=== PATIENT | female | born 1950 | race Caucasian/White ===

== ENCOUNTER 2017-01-23 11:46 | Emergency (ER) | payer MEDICARE, OTHER ==
[~2017-01-23] VITALS: Ht 152.4 cm; Wt 64.9 kg
[~2017-01-23 11:46] MED LIST: CEPHALEXIN500 MG PO; CYCLOBENZAPRINE10 MG PO; HYDROCODON-ACE1 EA10 PO; NAPROSYN500 MG PO; NORCO 5-325 TA1 EACH PO; PANTOPRAZOLE SO40 MG PO; VICODIN 5-3001 EACH PO
[2017-01-23] MEDS ORDERED: ONDANSETRON ODT8 MG PO (14:03)
[2017-01-23] MEDS ORDERED: NORCO 5-325 TA1 EACH PO (14:03)
== END 2017-01-23 14:12 | disposition home or self-care (01) ==
LOC: ED 11:46
DX: S39.012A Strain of muscle, fascia and tendon of lower back, initial encounter (principal); F17.200 Nicotine dependence, unspecified, uncomplicated; Z90.710 Acquired absence of both cervix and uterus; Z88.5 Allergy status to narcotic agent; Z79.899 Other long term (current) drug therapy; X58.XXXA Exposure to other specified factors, initial encounter
CPT/HCPCS: 72100; 96374; 99283; J1885

== ENCOUNTER 2018-10-25 11:31 | Emergency (ER) | payer MEDICARE, OTHER ==
[~2018-10-25] VITALS: Ht 152.4 cm; Wt 64.9 kg
[~2018-10-25 11:31] MED LIST changes: +ONDANSETRON ODT8 MG PO
[2018-10-25] MEDS ORDERED: OXYCODONE HCL5 MG PO (13:57)
[2018-10-25] MEDS ORDERED: ZOFRAN4 MG PO (13:57)
== END 2018-10-25 14:07 | disposition home or self-care (01) ==
LOC: ED 11:31
PROC: 0HQ0XZZ Repair Scalp Skin, External Approach (ICD-10-PCS; principal; 2018-10-25)
DX: S01.01XA Laceration without foreign body of scalp, initial encounter (principal); S09.90XA Unspecified injury of head, initial encounter; F17.200 Nicotine dependence, unspecified, uncomplicated; Z90.710 Acquired absence of both cervix and uterus; Z88.5 Allergy status to narcotic agent; Z79.899 Other long term (current) drug therapy; W22.8XXA Striking against or struck by other objects, initial encounter
CPT/HCPCS: 12002; 90471; 90715; 99282-25; 99406

== ENCOUNTER 2020-10-13 16:24 | Emergency (ER) | payer MEDICARE, OTHER ==
[~2020-10-13] VITALS: Ht 152.4 cm; Wt 64.9 kg
--- NOTE | ~2020-10-13 | EKG ---
[facility] [address] [facility], [place] [address] Draft EK completed, results pending confirmation PATIENT NAME: SINGH AZEVEDO Electrocardiogram DATE OF : 50 PHYSICIAN: PRELIMINARY REPORT #: [id number] REPORT IS CONFIDENTIAL AND NOT TO BE RELEASED WITHOUT AUTHORIZATION
[~2020-10-13 16:24] MED LIST changes: +OXYCODONE HCL5 MG PO; +ZOFRAN4 MG PO
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
--- NOTE | 2020-10-13 16:47 | NUR ---
EKG completed at 1637 and given to RN for to review.
--- NOTE | 2020-10-15 18:31 | EKG ---
[facility] [address] [facility] [place], [place] [address] Signed Normal sinus rhythm Nonspecific ST and T wave abnormality Prolonged QT Abnormal ECG When compared with ECG of 13-OCT-2020 16:37, (Unconfirmed) No significant change was found Confirmed by TANISHA ADAM MD ([id number]) on 10/15/2020 6:30:47 PM Electronically Signed By: TANISHA ADAM MD 10/15/201830 PATIENT NAME: SINGH AZEVEDO Electrocardiogram DATE OF : 50 PHYSICIAN: TANISHA ADAM MD REPORT #: [id number] REPORT IS CONFIDENTIAL AND NOT TO BE RELEASED WITHOUT AUTHORIZATION
== END 2020-10-13 18:31 | disposition home or self-care (01) ==
LOC: ED 16:24
DX: R07.89 Other chest pain (principal); E87.6 Hypokalemia; F17.200 Nicotine dependence, unspecified, uncomplicated; Z88.5 Allergy status to narcotic agent; Z79.899 Other long term (current) drug therapy
CPT/HCPCS: 71045; 80053; 83735; 84484; 85025; 93005; 93010; 99285-25

== ENCOUNTER 2021-07-23 10:10 | Day surgery (SDC) | payer MEDICARE, OTHER ==
[~2021-07-23] VITALS: Ht 152.4 cm; Wt 53.5 kg
[~2021-07-23 10:10] MED LIST changes: +BAYER CHEWABLE81 MG PO; +COMBIVENT RESPIM4 GM INH; +MINIPRESS1 MG PO; +SERTRALINE HCL25 MG PO; +VITRON-C TABLE1 EACH PO; +[UNRECOGNIZED DRUG - OTHER] PO
--- NOTE | 2021-07-23 14:34 | NUR ---
07/23/21 1434 Irma Thompson 1428- PT ARRIVES TO PACU NONAROUSABLE TO STIMULI. RESP EVEN AND TACHYPNEIC AT 21-24 BPM. OXYGEN SAT HIGH 90'S TO 100% ON 4L VIA CO2 NC.
--- NOTE | 2021-07-24 07:11 | OR ---
[facility] [address] [place], [place] [address] Signed DATE OF OPERATION: 07/23/2021 SURGEON: Nigel Smyth MD PREOPERATIVE DIAGNOSES: 1. Loss of taste and anorexia with weight loss. 2. Iron-deficiency anemia. 3. Prior history of hiatal hernia with acid reflux. 4. Hartman's esophagus plus or minus dysplasia. 5. Crystal-Za fundoplication in 2018. 6. Diverticulosis. POSTOPERATIVE DIAGNOSES: 1. Intact Crystal-Za fundoplication. 2. Bnpi-oy-lkvposla duodenitis/bulb. 3. Question short-segment Hartman's esophagus. 4. Tortuous colon with 3 areas of significant angulation. PROCEDURES: 1. EGD with CLOtest and biopsies of the pyloric bulb, antrum, and GE junction. 2. Colonoscopy without biopsy. ESTIMATED BLOOD LOSS: None. INDICATIONS: Ann is a 71-year-old female, asked to see me for upper and lower endoscopy mainly for her iron-deficiency anemia. Although, she had a loss of taste and some anorexia with weight loss. She told me that she had COVID previously. That gave her no taste. Her iron-deficiency anemia apparently has been longstanding. She had a previous history of a hiatal hernia with acid reflux. There was a question whether or not she had a short-segment Hartman's esophagus with possible dysplasia. Her CLOtest have been negative in the past. She is known to have a little diverticulosis. There is no family history of colon cancer or polyps. She had a laparoscopic Crystal-Za fundoplication in 2018, with Dr. White. Currently, she does not describe any upper or lower GI complaints. There is no esophageal dysphagia. She had been referred to my office by her primary care provider. Her friend came with her. In the office, I gave her a pamphlet on both upper and lower endoscopy. She recalls that as well. There is risk including, but not limited to gas bloating, crampy abdominal pain, bleeding, perforation requiring surgery, and missed diagnosis. Also because of her advanced age, medical Electronically Signed By: NIGEL SMYTH MD 07/24/21 0711 PATIENT NAME: ANN AZEVEDO OPERATIVE REPORT DATE OF : 50 REPORT #: [id number] PHYSICIAN: NIGEL SMYTH MD PCP: KAREN GARNETT MD REPORT IS CONFIDENTIAL AND NOT TO BE RELEASED WITHOUT AUTHORIZATION [facility] [address] [place], [place] [address] Signed issues, and very frail nature, we asked that an anesthesia provider help with increased monitoring sedation with propofol. She had expressed understanding, wished to proceed. PROCEDURE NOTE: Ann was taken in the endoscopy suite and placed in a supine semi-recumbent position. She was given monitored anesthesia care with propofol per our nurse customer operations manager. A bite block was utilized for the case. The adult gastroscope was introduced and advanced out into the duodenum without difficulty. The duodenum was unremarkable. Her pyloric bulb showed moderate inflammatory changes. There was no ulcers. We took a biopsy of the pyloric bulb as well as the antrum for pathologic review. We took an additional biopsy out of her antrum for CLOtest. Overall, the stomach was not particularly concerning. On retroflexion of the scope, we can see the Crystal-Za fundoplication. It remains intact. It remains below the diaphragm. The scope was withdrawn up through the GE junction, which is compliant without stricture. She has some mild disruption to the Z-line. She may have a very short-segment of Hartman's esophagus. We went and took several biopsies along this area for pathologic review. There was no distal esophagitis. The middle and upper esophagus were unremarkable. After this, the gas was suctioned out and the gastroscope removed. Ann tolerated the upper endoscopy quite well. Ann was then rotated into the left lateral decubitus position. She was maintained on monitored anesthesia care per nurse customer operations manager. A digital rectal exam was performed and this was unremarkable. The adult colonoscope was introduced and advanced under direct visualization of the camera. She has a very narrow, tortuous, difficult sigmoid colon. In fact, we almost abandon the endoscopy. We used abdominal compression and rotating her several times into the supine position and back into the left lateral decubitus position in order to get the scope up through the sigmoid colon and eventually we had some trouble around the splenic flexure and certainly moderate difficulty at the hepatic flexure. Eventually, we made our way into the cecum itself. We could easily see the appendiceal orifice and the ileocecal valve. Her prep was quite good. The scope was then slowly withdrawn. On this occasion, we saw no diverticulosis and no polyps. The scope had been retroflexed in the rectum and no additional pathology noted above the anal canal. After this, the gas was suctioned out. The colonoscope removed. Ann tolerated the procedure quite well. RECOMMENDATIONS: I will see Ann back in my office in 7 to 14 days to review her results. Her colonoscopy is significantly difficult from a technical standpoint. She might keep this in mind in the future and pursue other modes of evaluation. Electronically Signed By: NIGEL SMYTH MD 07/24/21 0711 PATIENT NAME: ANN AZEVEDO OPERATIVE REPORT DATE OF : 50 REPORT #: [id number] PHYSICIAN: NIGEL SMYTH MD PCP: KAREN GARNETT MD REPORT IS CONFIDENTIAL AND NOT TO BE RELEASED WITHOUT AUTHORIZATION [address] [place], [place] [address] Signed Nigel Smyth MD ALB/MODL /[id number] cc: MD David Jane MD Copies: KAREN GARNETT MD, STEVEN BOWER, ANDREW L MD ~ Electronically Signed By: NIGEL SMYTH MD 07/24/21 0711 PATIENT NAME: ANN AZEVEDO OPERATIVE REPORT DATE OF : 50 REPORT #: [id number] PHYSICIAN: NIGEL SMYTH MD PCP: KAREN GARNETT MD REPORT IS CONFIDENTIAL AND NOT TO BE RELEASED WITHOUT AUTHORIZATION
== END 2021-07-23 15:03 | disposition home or self-care (01) ==
LOC: DS 10:10 → OPS 10:10 → DS 10:45 → OPS 10:45
PROVIDERS: ATTEND Colon & Rectal Surgery
PROC: 0DB68ZX Excision of Stomach, Via Natural or Artificial Opening Endoscopic, Diagnostic (ICD-10-PCS; 2021-07-23)
PROC: 0DJD8ZZ Inspection of Lower Intestinal Tract, Via Natural or Artificial Opening Endoscopic (ICD-10-PCS; 2021-07-23)
PROC: 0DB38ZX Excision of Lower Esophagus, Via Natural or Artificial Opening Endoscopic, Diagnostic (ICD-10-PCS; principal; 2021-07-23 10:45)
PROC: 0DB78ZX Excision of Stomach, Pylorus, Via Natural or Artificial Opening Endoscopic, Diagnostic (ICD-10-PCS; 2021-07-23 10:45)
DX: D50.9 Iron deficiency anemia, unspecified (principal); R63.4 Abnormal weight loss; R63.0 Anorexia; K29.50 Unspecified chronic gastritis without bleeding; K20.90 Esophagitis, unspecified without bleeding; K63.89 Other specified diseases of intestine; F17.210 Nicotine dependence, cigarettes, uncomplicated; Z98.890 Other specified postprocedural states; Z88.5 Allergy status to narcotic agent
CPT/HCPCS: 00731; 36415; 87077; J0690; J2370; J2704; J7121

== ENCOUNTER 2022-08-03 05:45 | Day surgery (SDC) | payer MEDICARE, OTHER ==
[2022-08-01 09:12] VITALS: BP 125/68
[~2022-08-03] VITALS: Ht 152.4 cm; Wt 59.5 kg
[~2022-08-03 05:45] MED LIST changes: +IRON325 M1 PO; +PRAZOSIN HCL1 MG PO
[2022-08-03 06:08] VITALS: BP 122/56
--- NOTE | 2022-08-03 08:10 | NUR ---
PT ALERT, ORIENTED AND RESTING COMFORTABLY. PT MENTIONED SHE HAS HAS PREVIOUS EGD. ALL QUESTIONS ASKED ANSWERED. PT DID REQUEST PRAYER, WILL FOLLOW
--- NOTE | 2022-08-03 08:14 | NUR ---
08/03/22 0814 Maida Louise 0807-PATIENT ARRIVED TO PACU ON RA RR EVEN. PATIENTS HOB ELEVATED REACTIVE TO VERBAL STIMULI OPENS EYES. VERY DROWSY DOZES BACK TO SLEEP. IVF INFUSING. SR. 0814-PATIENT REACTIVE TO VERBAL STIMULI OPENING EYES ORIENTED TO PACU DENIES PAIN OR NAUSEA. RA 97% RR EVEN. DOZES BACK TO SLEEP.
[2022-08-03 08:34] VITALS: BP 122/80
--- NOTE | 2022-08-03 09:47 | OR ---
[facility] [address] [place], [place] [address] Signed DATE OF OPERATION: 08/03/2022 SURGEON: Nigel Smyth MD PREOPERATIVE DIAGNOSES: 1. Chronic iron deficiency anemia. 2. Epigastric abdominal pain. 3. History of gastroduodenitis. 4. Status post Crystal-Za fundoplication in 2018. 5. History of short-segment Hartman's esophagus. 6. Diverticulosis. 7. Torturous colon. POSTOPERATIVE DIAGNOSES: 1. Mild to moderate gastroduodenitis. 2. Intact Crystal-Za fundoplication. 3. GE junction at 35 cm with mild irritation. PROCEDURE: EGD with CLOtest and biopsies of the pyloric bulb, antrum and GE junction. ESTIMATED BLOOD LOSS: None. INDICATIONS: Ann is a 72-year-old female, who is now disabled, mainly from smoking and lack of physical activity. She is very frail at this point in her life. She has been asked to see me for her 3rd upper and lower endoscopy in one year. She has had chronic iron deficiency anemia for many many years. She has a long history of medical noncompliance and in particular, she does not like the iron tablets. She has been seeing her medical oncologist for IV iron infusion. Despite that, her anemia seems to be getting worse. Her preop hemoglobin was 10.1 with a mean cell volume of 80.7. She has received blood transfusions this last year for her anemia. She has also been following along with her text transcriber for her aortic valve replacement. So far, the followup echocardiograms have been good. Unfortunately, she continues to smoke and has expressed to myself and other physicians no desire to quit. In the office, I had reviewed her extensive records together. We had talked about her frail nature and her very tortuous, very difficult colon endoscopically. Consequently, we recommended that she have a barium enema. Naturally, she has not followed through with that at this point. We then decided we would proceed with yet her 3rd upper endoscopy in one year. She is very familiar with Electronically Signed By: NIGEL SMYTH MD 08/03/22 0947 PATIENT NAME: ANN AZEVEDO OPERATIVE REPORT DATE OF : 50 REPORT #: [id number] PHYSICIAN: NIGEL SMYTH MD PCP: KAREN GARNETT MD REPORT IS CONFIDENTIAL AND NOT TO BE RELEASED WITHOUT AUTHORIZATION [facility] [address] [place], [place] [address] Signed upper endoscopy. She knows there is risk including, but not limited to gas bloating, crampy abdominal pain, bleeding, perforation requiring surgery, and missed diagnosis. We also reviewed the need for monitored anesthesia care given her advanced age, very frail nature, COPD, and other issues including the aortic valve. She had expressed understanding and wished to proceed. PROCEDURE NOTE: Ann was taken into our endoscopy suite and placed in the supine semi-recumbent position. She was given monitored anesthesia care propofol per our nurse promotions producer. The posterior oropharynx was anesthetized with Hurricaine spray. A bite block was utilized for the case. The adult gastroscope was introduced and advanced under direct visualization of the camera out into the third portion of the duodenum without difficulty. The duodenum was unremarkable as usual. Her pyloric bulb showed moderate patchy inflammatory changes as did her stomach. This is chronic and quite consistent over the years. Once again, no ulcerations in the pyloric bulb or the stomach. No active bleeding that we could see. We took a biopsy of the pyloric bulb as well as the antrum for pathologic review. We also took a biopsy of the antrum for CLOtest. Upon retroflexion of the scope, we can see that she has an intact Crystal-Za fundoplication. The scope was withdrawn up through the area of the GE junction, which was compliant without stricture. There was no gastric or esophageal varices. She has very minimal disruption around her Z-line. We went ahead and took a biopsy along the edge of the Z-line at 35 cm from her incisors. There was no distal esophagitis. The middle and upper esophagus were quite unremarkable. After this, the gas was suctioned out and the gastroscope removed. Ann tolerated her procedure quite well. RECOMMENDATIONS: I will see Ann back in my office in 7 to 14 days to review her results. Once again, we will encourage her to undergo a barium enema to evaluate her colon. She might also consider a simple small bowel follow-through just to evaluate the length of her small bowel as well. If she continues to have bleeding issues, she might need capsule endoscopy. Nigel Smyth MD ALB/AVELINOL /[id number] Electronically Signed By: NIGEL SMYTH MD 08/03/22 0947 PATIENT NAME: ANN AZEVEDO OPERATIVE REPORT DATE OF : 50 REPORT #: [id number] PHYSICIAN: NIGEL SMYTH MD PCP: KAREN GARNETT MD REPORT IS CONFIDENTIAL AND NOT TO BE RELEASED WITHOUT AUTHORIZATION [place] [id number] [place] [address] Signed cc: MD Nigel Jane, MD Layo Pelaez, MD David Escamilla Copies: KAREN GARNETT MD, ANDREW L MD QUACKENBUSH,DAVID CHOU MD Electronically Signed By: NIGEL SMYTH MD 08/03/22 0947 PATIENT NAME: ANN AZEVEDO OPERATIVE REPORT DATE OF : 50 REPORT #: [id number] PHYSICIAN: NIGEL SMYTH MD PCP: KAREN GARNETT MD REPORT IS CONFIDENTIAL AND NOT TO BE RELEASED WITHOUT AUTHORIZATION
--- NOTE | 2022-08-04 15:29 | PATH ---
[facility] [address] [place], [place] [address] Signed SPECIMEN(S): A DUODENAL BULB BIOPSY SPECIMEN(S): B ANTRUM BIOPSY SPECIMEN(S): C GE JUNCTION BIOPSY SPECIMEN SOURCE: A. DUODENAL BULB BIOPSY B. ANTRUM BIOPSY C. GE JUNCTION BIOPSY CLINICAL HISTORY: History of anemia, chronic gastritis, Hartman's esophagus. History of Za fundoplication. Post: Gastroduodenitis. FINAL PATHOLOGIC DIAGNOSIS: A. Duodenal bulb biopsy: - Benign duodenal mucosa with focal reactive features and mild chronic stromal inflammation. - Negative for significant villous effacement or increased epithelial lymphocytes. B. Antrum biopsy: - Mild chronic gastritis. - Negative for atypical epithelial features. - A Helicobacter pylori immunostain is negative for organisms. C. GE junction, biopsy: - Esophageal and glandular mucosa with specialized intestinal (goblet cell) metaplasia, negative for dysplasia. JVR:sm:C2NR MICROSCOPIC EXAMINATION: Histologic sections of all submitted blocks are examined by light microscopy. These findings, together with the gross examination, support the pathologic diagnosis. A Helicobacter pylori immunostain is performed with appropriate positive and negative controls on block (B1) and is negative for organisms. JVR:sm GROSS DESCRIPTION: A. The specimen, labeled and designated "Portenier, duodenal bulb biopsy," is received in formalin and consists of two stark soft tissue fragments, ranging from 0.1-0.3 cm. Entirely submitted in (A1). B. The specimen, labeled and designated "Portenier, antrum biopsy," is received PATIENT NAME: SINGH AZEVEDO PATHOLOGY DATE OF : 50 REPORT #: [id number] PHYSICIAN: DHAVAL ORELLANA PCP: KAREN GARNETT MD REPORT IS CONFIDENTIAL AND NOT TO BE RELEASED WITHOUT AUTHORIZATION [facility] [address] [place], [place] [address] Signed in formalin and consists of one stark soft tissue fragment, 0.4 cm. Entirely submitted in (B1). C. The specimen, labeled and designated "Portenier, GE junction biopsy," is received in formalin and consists of one stark soft tissue fragment, 0.3 cm. Entirely submitted in (C1). VB (under the direct supervision of a pathologist) The Gross Description was prepared using a voice recognition system. The report was reviewed for accuracy; however, sound-alike word errors, addition and/or deletions may occur. If there is any question about this report, please contact Client Services. ADDITIONAL NOTES: Immunohistochemical and/or in situ hybridization studies were performed on this case with the appropriate positive controls that react as expected. This test was developed and its performance characteristics determined by [facility]. It has not been cleared or approved by the U.S. Food and Drug Administration. The FDA has determined that such clearance or approval is not necessary. This test is used for clinical purposes. It should not be regarded as investigational or for research. [facility] is certified under the Clinical Laboratory Improvement Amendments of 1988 (CLIA) as qualified to perform high complexity clinical laboratory testing. This assay has not been validated for specimens that have been decalcified. PERFORMING LABORATORY: The technical component was performed by [facility], [address] [place] [id number] (CLIA# [id number]). Professional interpretation was performed by [facility], [address] [place] [address] Ave[address] [place] [address] (CLIA#: [id number]). Diagnostician: Jono Baron MD Pathologist Electronically Signed 08/04/2022 Copies: ~ PATIENT NAME: JALENGEOVANNASINGH PATHOLOGY DATE OF : 50 REPORT #: [id number] PHYSICIAN: DHAVAL PATHOLOGY PCP: KAREN GARNETT MD REPORT IS CONFIDENTIAL AND NOT TO BE RELEASED WITHOUT AUTHORIZATION
== END 2022-08-03 08:45 | disposition home or self-care (01) ==
LOC: OPS 05:45 → DS 05:45 → OPS 08:15 → DS 08:15 → OPS 08:45 → DS 12:00
PROVIDERS: ATTEND Colon & Rectal Surgery
PROC: 0DB68ZX Excision of Stomach, Via Natural or Artificial Opening Endoscopic, Diagnostic (ICD-10-PCS; principal; 2022-08-03 07:30)
DX: D50.9 Iron deficiency anemia, unspecified (principal); K29.90 Gastroduodenitis, unspecified, without bleeding; K29.50 Unspecified chronic gastritis without bleeding; K22.70 Barrett's esophagus without dysplasia; K57.90 Diverticulosis of intestine, part unspecified, without perforation or abscess without bleeding; K63.89 Other specified diseases of intestine; J44.9 Chronic obstructive pulmonary disease, unspecified; F17.200 Nicotine dependence, unspecified, uncomplicated; I10 Essential (primary) hypertension; I25.10 Atherosclerotic heart disease of native coronary artery without angina pectoris; I35.0 Nonrheumatic aortic (valve) stenosis; R01.1 Cardiac murmur, unspecified; Z98.890 Other specified postprocedural states
CPT/HCPCS: 00731; 36415; 87077; J0330; J0690; J2704; J3010; J7121

== ENCOUNTER 2023-02-15 11:30 | Observation (INO) | payer MEDICARE, OTHER ==
[~2023-02-15] VITALS: Ht 152.4 cm; Wt 58.3 kg
[~2023-02-15 11:30] MED LIST changes: -BAYER CHEWABLE81 MG PO; +LO-DOSE ASPIRIN81 MG PO
[2023-02-15 12:02] LABS: BASOPHILS 0.9 % (0-2); EOSINOPHILS 0.9 % (0-6); HEMATOCRIT 21.3 % (35.0-50.0); HEMOGLOBIN 6.5 g/dL (12.0-18.0); MCH 20.8 (27-36); MCHC 30.4 g/dl (30-36); MONOCYTES 7.3 % (0-12); NEUTROPHILS 59.9 % (39-80); PLATELET COUNT 344 K/uL (140-440); RBC 3.11 M/ul (4.3-5.7); RDW 18.1 (10.5-15.0)
[2023-02-15 12:25] LABS: ALBUMIN 3.7 g/dL (3.4-5.0); ALBUMIN/GLOBULIN RATIO 1.12 (1.1-2.4); ANION GAP 16.7 (7-21); BILIRUBIN, TOTAL 0.2 ng/dL (0.2-1.0); BUN/CREATININE RATIO 14.14 (6.0-28.6); CALCIUM 8.5 mg/dL (8.5-10.1); CREATININE, SERUM 0.99 mg/dL (0.55-1.02); POTASSIUM 3.7 mmol/L (3.5-5.1)
[2023-02-15 12:50] LABS: INFLUENZA B NAA NEGATIVE (NEGATIVE); RESPIRATORY SYNCYTIAL VIR NAA NEGATIVE (NEGATIVE)
[2023-02-15 14:36] LABS: ABO A; ANTIBODY SCREEN NEGATIVE; RH POSITIVE
--- NOTE | 2023-02-15 15:40 | NUR ---
PT ARRIVED TO ROOM VIA ED STRETCHER ACCOMPANIED BY RN EAN Brar. REPORT RECEIVED FROM EAN Brar. PT TRANSFERRED FROM STRETCHER TO BED VIA SCOOT METHOD, UNASSISTED, STATING THAT SHE DOESN'T FEEL DIZZY ANYMORE. PT WAS ABLE TO STAND UNASSISTED WITH 2-PERSON STANDBY, AMUBLATE TO TOILET, VOID, STAND AND AMBULATE TO SINK TO WASH HER HANDS, AMBULATE BACK TO AND GET INTO BED WITHOUT COMPLAINTS OF PAIN, DIZZINESS, OR LIGHTHEADEDNESS. PT IS A&O X4, STATES SHE IS HUNGRY, IV 20G IN LFA FLUSHES WELL WITH GOOD RETURN. BLOOD CONSENT SIGNED. BLOOD BAND ON PT, PT VERIFIED NAME AND . PT ORIENTED TO ROOM, SIDE RAILS UP FOR SAFETY, CALL LIGHT IN REACH, PERSONAL BELONGINGS AND BEDSIDE TABLE IN REACH. WARM BLANKETS PROVIDED.
[2023-02-15 15:47] LABS: IS CROSSMATCH COMPATIBLE
[2023-02-15 15:53] VITALS: BP 123/42
--- NOTE | 2023-02-15 16:38 | NUR ---
BLOOD PRODUCTS BROUGHT TO ROOM BY WILLEM EDDY. PT VERIFICATION, BLOOD PRODUCT VERIFICATION PERFORMED BY THIS RN AND WILLEM EDDY, PT CONFIRMED PT INFORMATION. WILLEM CUADRA OBSERVING. PRE VS OBTAINED. PT IS SUPINE IN BED, WATCHING TELEVISION CALL LIGHT IN REACH. EDUCATED PT ON WHEN TO USE CALL LIGHT IF EXPERIENCING S/SX OF ADVERSE EFFECTS.
--- NOTE | 2023-02-15 16:52 | NUR ---
PT HAS NO COMPLAINTS AT THIS TIME. RESTING IN BED, EYES CLOSED, BREATHING REGULAR AND NON-LABORED, VSS, BLOOD ADMINISTRATION RATE INCREASED FROM 125/HR TO 175/HR. PT TOLERATING WELL. PT HAS TELEVISION ON. CALL LIGHT, BEDSIDE TABLE IN REACH, SAFETY RAILS UP.
--- NOTE | 2023-02-15 18:01 | NUR ---
PT ARRIVED TO HER ROOM VIA STRETCHER AROUND 1540 HOURS THIS SHIFT. PT HAS BEEN A&O X4, C/O BEING HUNGRY. PT WAS ABLE TO AMBULATE TO THE TOILET WITH SBA ONLY, NO C/O DIZZINESS AT THAT TIME. PT'S SYSTOLIC BP HAS BEEN BETWEEN 100-123, NO FEVERS. PRBC BEING ADMINISTERED, NO ADVSERSE EFFECTS THUS FAR, VSS. PT FAMILY WAS IN ROOM UPON HER ARRIVAL BUT HAS SINCE LEFT. PT HAS NOT USED THE CALL LIGHT SINCE HER ARRIVAL. PRE VS AND 15 MIN VS HAVE BEEN COMPLETED.
--- NOTE | 2023-02-15 18:03 | NUR ---
PATIENT IN BED RESTING WITH EYES CLOSED. IN TO DO I&O'S, I&O'S CHARTED. RN DOING VITALS WHILE DOING BLOOD ADMINISTRATION. CALL LIGHT IN REACH. NO FURTHER NEEDS AT THIS TIME.
--- NOTE | 2023-02-15 18:57 | NUR ---
In with pt for first unit of PRBC completion. VS obtained, second unit started. Pt is A&O x4, no complaints or concerns. IV site is patent and no swelling redness or irritation. Pt was able to ambulate to void in the toilet with line and tube management only. Pt refused to put her no-slip socks back on prior to ambulating to the toilet and education was reinforced on reducing risk for falls by donning the no-slip socks. Pt verbalized understanding. Pt voided 100ml clear yellow urine, no c/o dizziness or lightheadedness, pt states she feels good. VSS. Call ligth in reach, personal belongings and bedside table in reach. Side rails up.
--- NOTE | 2023-02-15 19:36 | NUR ---
REPORT RECEIVED FROM DAY SHIFT RN. PT LAYING IN BED WATCHING TV. BLOOD CURRENTLY INFUSING. NO SIGNS OF ACUTE DISTRESS. NO NEEDS EXPRESSED AT THIS TIME. CALL LIGHT WITHIN REACH. SAFETY PRECAUTIONS IN PLACE. WILL CONTINUE TO MONIOTR.
[2023-02-15 20:48] VITALS: BP 133/51
--- NOTE | 2023-02-16 00:02 | NUR ---
PT LAYING IN BED WATCHING TV. NO SIGNS OF ACUTE DISTRESS. NO NEEDS EXPRESSED AT THIS TIME. PT NPO FOR PROCEDURE IN AM. CALL LIGHT WITHIN REACH. SAFETY PRECAUTIONS IN PLACE. IV FLUIDS INFUSING.
[2023-02-16 02:11] VITALS: BP 135/55
--- NOTE | 2023-02-16 04:14 | NUR ---
PT RESTING COMFORTABLY IN BED WITH EYES CLOSED. BREATHING EVEN AND UNLABORED. CALL LIGHT WITHIN REACH. IV FLUIDS INFUSING. IV PATENT AND INTACT. NO NEEDS EXPRESSED AT THIS TIME. SAFETY PRECAUTIONS IN PLACE.
[2023-02-16 05:04] VITALS: BP 108/52
[2023-02-16 05:31] LABS: BASOPHILS 0.9 % (0-2); EOSINOPHILS 1.5 % (0-6); HEMATOCRIT 25.8 % (35.0-50.0); HEMOGLOBIN 8.5 g/dL (12.0-18.0); LYMPHOCYTES 29.7 % (24-44); MCH 24.4 (27-36); MCHC 32.9 g/dl (30-36); MCV 74.3 fl (81-99); MONOCYTES 7.5 % (0-12); NEUTROPHILS 60.4 % (39-80); PLATELET COUNT 204 K/uL (140-440); RBC 3.48 M/ul (4.3-5.7); RDW 22.7 (10.5-15.0)
[2023-02-16 05:39] LABS: ANION GAP 13.9 (7-21); BUN/CREATININE RATIO 15.38 (6.0-28.6); CREATININE, SERUM 0.78 mg/dL (0.55-1.02); POTASSIUM 3.9 mmol/L (3.5-5.1)
[2023-02-16 05:56] LABS: INR 1.09 (0.80-1.30); PROTIME 13.6 Sec (11.2-14.2)
--- NOTE | 2023-02-16 06:20 | NUR ---
TO PT ROOM, INFORMED PT OF THE UPCOMING EDG, PER SAGE, COMING TO FLOOR FOR PT NEAR 0700. PT UP TO BATHROOM TO VOID.
--- NOTE | 2023-02-16 07:30 | NUR ---
REPORT GIVEN TO DAY SHIFT RN. PT OFF FLOOR FOR PROCEDURE AT THIS TIME.
--- NOTE | 2023-02-16 07:51 | NUR ---
RECIEVED REPORT FROM NURSE. PT IS CURRENTLY OFF THE FLOOR GETTING AN ENOSCOPY.
--- NOTE | 2023-02-16 08:14 | NUR ---
02/16/23 0814 Ashanit Matt 0805 PT ARRIVED TO PACU ON 4L VIA NC, PT ASLEEP AND RESP EVEN AND UNLABORED. 0812 PT WOKE TO TACTILE STIMULI AND DENIES CONCERNS. PT TURNED OFF.
[2023-02-16 08:40] VITALS: BP 107/84
--- NOTE | 2023-02-16 08:40 | NUR ---
recieved report from surgical nurse. pt is a+o. no signs or complaints of pain. pt vitals are stable. see emar. no other cares needed or requested at this time. call light within reach
[2023-02-16] MEDS ORDERED: NEOMYCIN-POLYMY10 ML OTIC (08:53)
--- NOTE | 2023-02-16 08:58 | NUR ---
MED REC COMPLETE
--- NOTE | 2023-02-16 09:11 | NUR ---
PT DECLINED CLINICAL STAFF ANESTHESIOLOGIST VISIT, SAYING SHE WAS LIKELY GOING HOME SOON. GAVE THANKS FOR TIMELY RECOVERY.
--- NOTE | 2023-02-16 10:16 | NUR ---
UR NOTE: [facility] SYNCOPE: OBSERVATION CARE (ISC) MET 02/15/23
--- NOTE | 2023-02-16 10:26 | NUR ---
PATIENT ALERT AND SITTING UP IN COFFEE, WITH DRINK. STATES SHE HAS A HOME WITH 3-4 STEPS INTO FRONT AND 1 STEP INTO BACK DOORS. STATES SHE DOES NOT HAVE ISSUES NAVIGATING STAIRS. NO DME. STATES SHE HAS CONSIDERED A WALKER, BUT FEELS SHE MAY NOT NEED ONE NOW THAT SHE HAS HAD BLOOD PRODUCTS AND IS FEELING A BIT BETTER. HAS BEEN STAYING WITH HER DAUGHTER, KATIUSKA, DUE TO INCREASED WEAKNESS WITH RECENT ANEMIA. STATES SHE STILL DRIVES, BUT THINKS SHE MAY NOT DRIVE MUCH LONGER. HAS DAUGHTER AND OTHERS SHE STATES WILL ASSIST WITH TRANSPORTATION WHEN NEEDED. STATES SHE IS HAVING ISSUES LIFTING AND DOING HOUSEWORK RECENTLY, BUT STATES SHE CONTINUES TO FEEL IT IS RELATED TO ANEMIA. VOICES DESIRE TO GO HOME TODAY. HAS NO FINANCIAL ISSUES. STATES SHE IS OK WITH FOOD AND OBTAINING MEDICATIONS, GETS SOCIAL SECURITY AND IT IS ENOUGH FOR HER. DENIES ANY POTENTIAL NEEDS FOR DC AT THIS TIME. INFORMED TO NOTIFY STAFF IF SOMETHING SHOULD ARISE. DEMOGRAPHICS VERIFIED WITH PATIENT AT THIS TIME.
[2023-02-16] MEDS ORDERED: SUCRALFATE1 GM PO (11:29)
[2023-02-16] MEDS ORDERED: PANTOPRAZOLE SO40 MG PO (11:29)
[2023-02-16 11:42] VITALS: BP 127/49
--- NOTE | 2023-02-16 12:25 | NUR ---
PT IS CURRENTLY GETTING DRESSED GETTING READY FOR DISCHARGE.
--- NOTE | 2023-02-16 13:00 | NUR ---
pt was given discharge instructions. IV CATHETER TAKEN OUT. IN TACT NO REDNESS OR SWELLING. VITALS TAKEN. PT CALLED HER RIDE AND IS NOW FINISHING DRESSING TO LEAVE.
--- NOTE | 2023-02-16 17:56 | EKG ---
[facility] [address] [facility] [place], [place] [address] Signed Normal sinus rhythm Normal ECG When compared with ECG of 14-DEC-2021 11:53, No significant change was found Confirmed by QUINN CHANDRA MD ([id number]) on 02/16/2023 5:55:58 PM Electronically Signed By: QUINN CHANDRA 02/16/23 1756 PATIENT NAME: SINGH AZEVEDO REBEKAH Electrocardiogram DATE OF : 50 PHYSICIAN: QUINN CHANDRA REPORT #: [id number] REPORT IS CONFIDENTIAL AND NOT TO BE RELEASED WITHOUT AUTHORIZATION
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
--- NOTE | 2023-02-17 10:16 | OR ---
[facility] [address] [place], [place] [address] Signed DATE OF OPERATION: 02/16/2023 SURGEON: Laquita Merritt MD PREOPERATIVE DIAGNOSES: 1. Significant anemia, hematocrit 21 with melena. 2. Known history of Za fundoplication. 3. Relatively recent history of duodenitis. 4. Ongoing smoking. POSTOPERATIVE DIAGNOSES: 1. Proximal gastric erosions, likely accounting for bleeding. 2. Significant bulbar duodenitis. PROCEDURE: Esophagogastroduodenoscopy with control of bleeding with hemoclip application. ANESTHESIA: Intravenous sedation; propofol infusion, Zev Alvarado CRNA INDICATIONS: This 73-year-old white woman is admitted to the hospital on 02/15/[address] Irwin, hospitalist, for hematocrit of 21 and report of melena. She presented at home with lightheadedness and weakness. She has undergone 2 units of transfusion and feels markedly improved. She has a history of Za fundoplication elsewhere and a colonoscopy and upper endoscopy performed by Dr. Josué Moreau in the past that had shown duodenitis and subsequent evaluation elsewhere for colonoscopy showed presumed arteriovenous malformations. Additionally, she had polyps. Her current situation is such that she continues to smoke on a daily basis. She has had black stool, but no hematemesis. She additionally has had an aortic valve replacement percutaneously and is not chronically anticoagulated. Duodenitis was noted on upper endoscopy in 2021 as well as in July of this year as performed by Dr. Josué Moreau. A colonoscopy by Dr. Farooq in [place] October 02, 2022 was thought to show AVMs, though I do not have specific information further. She is admitted at this time to undergo upper endoscopy to better characterize the source of her anemia. She understands the risk of bleeding, infection, perforation, and so on. Electronically Signed By: LAQUITA MERRITT MD 02/17/23 1016 PATIENT NAME: SINGH AZEVEDO OPERATIVE REPORT DATE OF : 50 REPORT #: [id number] PHYSICIAN: LAQUITA MERRITT MD PCP: KAREN HANNAH MD REPORT IS CONFIDENTIAL AND NOT TO BE RELEASED WITHOUT AUTHORIZATION [facility] [address] [place], [place] [address] Signed FINDINGS: The patient tolerated the procedure well. Propofol sedation was used. She had no sign of clot within the stomach or duodenum. She did have significant bulbar duodenitis but the 2nd and 3rd portions were normal. Retroflexed view confirmed anatomy consistent with Za fundoplication, but she did have at least three gastric erosions, which were significant and did show some fresh oozing of blood. The dominant lesion was hemoclipped for control. CLOtest was negative. Her esophagus appeared normal. There was no evidence of Hartman's epithelium proper. Vocal cords were normal. There was no sign of vallecular varices. DESCRIPTION OF PROCEDURE: The patient was brought to the endoscopy suite and given topical lidocaine hypopharyngeal anesthesia. She was given intravenous sedation with propofol infusional technique by the water safety teacher in the lateral decubitus position left side down. A bite block was placed. An Olympus video upper endoscope was passed in the hypopharynx. The vocal cords appeared normal. The scope was passed in the esophagus without problem, throughout its length it was normal. There was no evidence of Hartman's epithelium, varices, ulceration, or other abnormality. The scope was easily passed in the stomach, which was insufflated with air. Rugal folds appeared normal. The antrum was promptly evaluated and had mild inflammation but not too much. The scope was advanced to the duodenum, which showed significant inflammation but no actual ulceration. Scope was passed to the 2nd and 3rd portions which allowed for biopsy to assess for celiac disease and withdrawal to the bulbar portion, biopsied as well. Careful inspection confirmed no actual ulceration. The scope was withdrawn and biopsies were taken of the antrum for both ANA and pathologic testing. CLOtest ultimately proved to be negative. Retroflexed view was then undertaken and examination of proximal GE junction showed anatomy typical of a Za fundoplication. Careful withdrawal showed erosive changes in the wrap area with some oozing of blood, though not pulsatile blood by any means. Various manipulations confirmed about three such erosions. The largest and most problematic one was secured with a hemoclip. Irrigation was undertaken. There was no sign of ongoing bleeding. The scope was withdrawn and antegrade view did visualize well the clip in the area of erosive change. Further withdrawal allowed for biopsy of the distal esophagus; there was no evidence of Hartman's epithelium. Further withdrawal of the scope showed no other abnormalities. Scope was removed. The patient was taken to the recovery room in good condition. CONCLUDING DIAGNOSIS: Most likely her anemia and bleeding is related to proximal gastric erosions. PLAN: Would recommend Carafate q.i.d. on empty stomach as well as PPI medication and to stop smoking. Electronically Signed By: LAQUITA MERRITT MD 02/17/23 1016 PATIENT NAME: SINGH AZEVEDO OPERATIVE REPORT DATE OF : 50 REPORT #: [id number] PHYSICIAN: LAQUITA MERRITT MD PCP: KAREN HANNAH MD REPORT IS CONFIDENTIAL AND NOT TO BE RELEASED WITHOUT AUTHORIZATION [facility] [address] [place], [place] [address] Signed MD JOSSELYN Cowart/JAZ /[id number] cc: Dr. Miguel Hannah MD Copies: KAREN HANNAH MD ~ Electronically Signed By: LAQUITA MERRITT MD 02/17/23 1016 PATIENT NAME: SINGH AZEVEDO OPERATIVE REPORT DATE OF : 50 REPORT #: [id number] PHYSICIAN: LAQUITA MERRITT MD PCP: KAREN HANNAH MD REPORT IS CONFIDENTIAL AND NOT TO BE RELEASED WITHOUT AUTHORIZATION
[2023-02-20 09:14] LABS: MCV 68.5 fl (81-99)
--- NOTE | 2023-02-20 15:50 | PATH ---
[facility] [address] [place], [place] [address] Signed SPECIMEN(S): A DUODENAL 3RD PORTION BIOPSY SPECIMEN(S): B DUODENAL BULB BIOPSY SPECIMEN(S): C ANTRUM BIOPSY SPECIMEN(S): D LOWER ESOPHAGEAL BIOPSY SPECIMEN SOURCE: A. DUODENAL 3RD PORTION BIOPSY B. DUODENAL BULB BIOPSY C. ANTRUM BIOPSY D. LOWER ESOPHAGEAL BIOPSY CLINICAL HISTORY: Pre: Anemia, symptomatic. Post: Proximal gastric erosion, duodenitis. FINAL PATHOLOGIC DIAGNOSIS: A. Duodenal third portion biopsy: - Benign duodenal mucosa, negative for specific diagnostic abnormality. B. Duodenal bulb biopsy: - Benign duodenal mucosa, negative for specific diagnostic abnormality. C. Antrum biopsy: - Benign gastric-type mucosa with focal slight chronic inflammation. - Negative for evidence of Helicobacter organisms on routine HE-stained sections. D. Lower esophageal biopsy: - Benign esophageal mucosa, negative for increased epithelial eosinophils. - Negative for glandular mucosa. JR:taurus MICROSCOPIC EXAMINATION: Histologic sections of all submitted blocks are examined by light microscopy. These findings, together with the gross examination, support the pathologic diagnosis. GROSS DESCRIPTION: A. The specimen, labeled and designated "Portenier, duodenal third portion biopsy," is received in formalin and consists of three stark soft tissue fragments, ranging from 0.2-0.4 cm. Entirely submitted in (A1). B. The specimen, labeled and designated "Portenier, duodenal bulb biopsy," is received in formalin and consists of four stark soft tissue fragments, ranging from 0.1-0.6 cm. Entirely submitted in (B1). PATIENT NAME: SINGH AZEVEDO PATHOLOGY DATE OF : 50 REPORT #: [id number] PHYSICIAN: DHAVAL ORELLANA PCP: KAREN GARNETT MD REPORT IS CONFIDENTIAL AND NOT TO BE RELEASED WITHOUT AUTHORIZATION [facility] [address] [place], [place] [address] Signed C. The specimen, labeled and designated "Portenier, antrum biopsy," is received in formalin and consists of three stark soft tissue fragments, ranging from 0.1-0.5 cm. Entirely submitted in (C1). D. The specimen, labeled and designated "Portenier, lower esophageal biopsy," is received in formalin and consists of one stark soft tissue fragment, 0.5 cm. Entirely submitted in (D1). VB (under the direct supervision of a pathologist) The Gross Description was prepared using a voice recognition system. The report was reviewed for accuracy; however, sound-alike word errors, addition and/or deletions may occur. If there is any question about this report, please contact Client Services. PERFORMING LABORATORY: Technical component was performed by [facility], [address] [place] [id number] (CLIA# [id number]). Professional interpretation was performed by [facility] - [facility], [address] [place] [id number] (CLIA#: [id number]). Diagnostician: Jono Baron MD Pathologist Electronically Signed 02/20/2023 Copies: ~ PATIENT NAME: SINGH AZEVEDO PATHOLOGY DATE OF : 50 REPORT #: [id number] PHYSICIAN: DHAVAL PATHOLOGY PCP: KAREN GARNETT MD REPORT IS CONFIDENTIAL AND NOT TO BE RELEASED WITHOUT AUTHORIZATION
== END 2023-02-16 13:07 | disposition home or self-care (01) ==
LOC: ED 11:30 → MS 11:32
PROVIDERS: Emergency Medicine; Surgery; ADMIT Internal Medicine; ATTEND Internal Medicine
PROC: 0W3P8ZZ Control Bleeding in Gastrointestinal Tract, Via Natural or Artificial Opening Endoscopic (ICD-10-PCS; 2023-02-16)
PROC: 0DB68ZX Excision of Stomach, Via Natural or Artificial Opening Endoscopic, Diagnostic (ICD-10-PCS; principal; 2023-02-16 07:45)
DX: K25.4 Chronic or unspecified gastric ulcer with hemorrhage (principal); K29.80 Duodenitis without bleeding; K29.50 Unspecified chronic gastritis without bleeding; D64.9 Anemia, unspecified; I25.10 Atherosclerotic heart disease of native coronary artery without angina pectoris; F17.210 Nicotine dependence, cigarettes, uncomplicated; Z66 Do not resuscitate; Z98.890 Other specified postprocedural states; Z86.010 Personal history of colon polyps; Z95.2 Presence of prosthetic heart valve; Z88.5 Allergy status to narcotic agent; Z79.82 Long term (current) use of aspirin; Z20.822 Contact with and (suspected) exposure to COVID-19
CPT/HCPCS: 00813; 36415; 36430; 71275; 74174; 80048; 80053; 83735; 84484; 85025; 85060; 85610; 86850; 86900; 86901; 86922; 87502; 88305; 93005; 93010; 96360; 96361; 99285-25; A9270; C9803; G0378; J0690; J2001; J2704; J7030; P9016; Q9967; U0002

== ENCOUNTER 2023-02-24 11:28 | Emergency (ER) | payer MEDICARE, OTHER ==
[~2023-02-24] VITALS: Ht 152.4 cm; Wt 54.0 kg
[~2023-02-24 11:28] MED LIST changes: +NEOMYCIN-POLYMY10 ML OTIC; +SUCRALFATE1 GM PO
--- OUTSIDE RECORDS SUMMARY | 2023-02-24 11:33 | XMS ---
PreManage Notification: SINGH AZEVEDO Security Physical Education Aide Events No recent Security Events currently on file CRITERIA MET - [facility] [place] [facility] - 2 Visits in 30 Days CARE PROVIDERS KAREN GARNETT Internal Medicine 10/14/2020-Current PHONE: Unknown -, [place]- Dentist: [employer] Certified Internetwork Expert [facility] PHONE: [phone] Bessy has no Care Guidelines for this patient. Care History Medical/Surgical 10/14/2020 [facility] - Patient is currently established with [facility]. If patient is seen in the ED during business hours. Please contact CHWs at [facility]. Care Recommendation: If this patient has had 5 or more Emergency Department visits in the last 12 months.\T\nbsp; Patient will require education on the scope and purpose of the ED as an acute care provider not a Primary Care Provider and should not be utilized for chronic conditions.\T\nbsp; These are guidelines and the provider should exercise clinical judgment when providing care. E.D. VISIT COUNT (12 MO.) [address] [facility] [place] TOTAL 2 NOTE: Visits indicate total known visits. ED/UCC VISIT TRACKING (12 MO.) 02/24/2023 11:29 [facility] [address] [place] TYPE: Emergency COMPLAINT: - RECTAL BLEEDING 02/15/2023 11:31 [facility] [address] [place] TYPE: Emergency COMPLAINT: - SYNCOPE EPISODE INPATIENT VISIT TRACKING (12 MO.) 02/15/2023 11:32 [facility] [place] TYPE: Observation COMPLAINT: - SYNCOPE DIAGNOSES: - Allergy status to narcotic agent - Anemia, unspecified - Atherosclerotic heart disease of qawalangin coronary artery without angina pectoris - Chronic or unspecified gastric ulcer with hemorrhage - Contact with and (suspected) exposure to COVID-19 - Do not resuscitate - Duodenitis without bleeding - FPC (current) use of aspirin - Nicotine dependence, cigarettes, uncomplicated - Other specified postprocedural states - Personal history of colonic polyps - Presence of prosthetic heart valve - Syncope and collapse - Unspecified chronic gastritis without bleeding [email or web address]
[2023-02-24 12:04] LABS: BASOPHILS 0.8 % (0-2); EOSINOPHILS 0.7 % (0-6); HEMATOCRIT 30.1 % (35.0-50.0); HEMOGLOBIN 9.5 g/dL (12.0-18.0); LYMPHOCYTES 16.6 % (24-44); MCH 23.6 (27-36); MCHC 31.7 g/dl (30-36); MCV 74.6 fl (81-99); MONOCYTES 5.2 % (0-12); NEUTROPHILS 76.7 % (39-80); PLATELET COUNT 296 K/uL (140-440); RBC 4.03 M/ul (4.3-5.7)
[2023-02-24 12:19] LABS: ALBUMIN 3.2 g/dL (3.4-5.0); ALBUMIN/GLOBULIN RATIO 0.94 (1.1-2.4); ANION GAP 13.4 (7-21); BILIRUBIN, TOTAL 0.4 ng/dL (0.2-1.0); BUN/CREATININE RATIO 16.66 (6.0-28.6); CREATININE, SERUM 0.84 mg/dL (0.55-1.02); POTASSIUM 3.4 mmol/L (3.5-5.1); PROTEIN, TOTAL 6.6 g/dL (6.4-8.2)
[2023-02-24 12:38] VITALS: BP 141/59
== END 2023-02-24 12:39 | disposition home or self-care (01) ==
LOC: ED 11:28
PROVIDERS: Emergency Medicine
DX: K92.1 Melena (principal); F17.200 Nicotine dependence, unspecified, uncomplicated; Z88.5 Allergy status to narcotic agent
CPT/HCPCS: 36415; 80053; 85025; 85060; 99283

== ENCOUNTER 2023-08-09 08:56 | Observation (INO) | payer MEDICARE, OTHER ==
[~2023-08-09] VITALS: Ht 149.9 cm; Wt 50.1 kg
[~2023-08-09 08:56] MED LIST changes: +ADULT ASPIRIN R81 MG PO; +VITAMIN B125000 MCG PO; +VITAMIN C500 M1 PO; +ZOLOFT25 MG PO
[2023-08-09 09:12] LABS: EOSINOPHILS 0.6 % (0-6); MCH 17.6 (27-36); MCHC 28.9 g/dl (30-36); MCV 60.9 fl (81-99); MONOCYTES 6.5 % (0-12); NEUTROPHILS 78.9 % (39-80); PLATELET COUNT 413 K/uL (140-440); RBC 2.63 M/ul (4.3-5.7); RDW 20.4 (10.5-15.0)
[2023-08-09 09:15] LABS: HEMOGLOBIN 4.6 g/dL (12.0-18.0)
[2023-08-09 09:29] LABS: ALBUMIN 3.2 g/dL (3.4-5.0); ALBUMIN/GLOBULIN RATIO 0.91 (1.1-2.4); ANION GAP 16.8 (7-21); BILIRUBIN, TOTAL 0.3 ng/dL (0.2-1.0); BUN/CREATININE RATIO 16.47 (6.0-28.6); CREATININE, SERUM 0.85 mg/dL (0.55-1.02); POTASSIUM 3.8 mmol/L (3.5-5.1); PROTEIN, TOTAL 6.7 g/dL (6.4-8.2)
[2023-08-09] MEDS ORDERED: PANTOPRAZOLE SODIUM 40 MG/10 ML VIAL IV ONE (09:30)
[2023-08-09 09:42] LABS: INR 1.08 (0.80-1.30); PROTIME 13.6 Sec (11.2-14.2)
[2023-08-09] MEDS ORDERED: ondansetron HCL 4 MG/2 ML VIAL IV ONE (10:00)
[2023-08-09 10:29] LABS: BILIRUBIN, URINE NEGATIVE (negative); BLOOD/HGB, URINE TRACE-I (Negative); KETONE, URINE TRACE (Negative); LEUK ESTERASE, URINE NEGATIVE (negative); NITRITE, URINE NEGATIVE (negative)
[2023-08-09 10:43] LABS: BACTERIA, URINE NONE SEEN /hpf (negative); CASTS, URINE NONE SEEN \\lpf; CRYSTALS, URINE NONE SEEN (0-1+); EPITHELIAL CELLS, URINE SQUAMOUS 1+ /lpf (0-1+); REFLEX CULTURE, URINE No (No)
[2023-08-09 10:46] LABS: ABO A; ANTIBODY SCREEN NEGATIVE; RH POSITIVE
[2023-08-09 11:02] LABS: IS CROSSMATCH COMPATIBLE
[2023-08-09] MEDS ORDERED: ISOSORBIDE MONO60 MG PO (11:56)
[2023-08-09] MEDS ORDERED: CLOPIDOGREL75 MG PO (11:56)
[2023-08-09] MEDS ORDERED: ondansetron HCL 4 MG/2 ML VIAL IV PRN (13:15)
[2023-08-09] MEDS ORDERED: NICOTINE 21 MG/24 HR 1 EA TDSY TD PRN (14:00)
--- NOTE | 2023-08-09 14:09 | EKG ---
[facility] [address] [facility] [place] [address] Signed Normal sinus rhythm Prolonged QT Abnormal ECG When compared with ECG of 15-FEB-2023 11:54, QT has lengthened Confirmed by Manuel Gu MD () on 08/09/2023 2:09:10 PM Electronically Signed By: MANUEL GU MD 08/09/23 1409 PATIENT NAME: SINGH AZEVEDO Electrocardiogram DATE OF : 50 PHYSICIAN: MANUEL GU MD REPORT #: [id number] REPORT IS CONFIDENTIAL AND NOT TO BE RELEASED WITHOUT AUTHORIZATION
[2023-08-09 14:35] VITALS: BP 114/44
[2023-08-09] MEDS ORDERED: NITROGLYCERIN0.4 MG SL (14:39)
[2023-08-09 17:54] VITALS: BP 121/52
[2023-08-09 18:03] VITALS: BP 121/52
[2023-08-09 19:04] LABS: EOSINOPHILS 0.9 % (0-6); HEMATOCRIT 28.5 % (35.0-50.0); LYMPHOCYTES 21.3 % (24-44); MCH 23.2 (27-36); MCHC 31.6 g/dl (30-36); MCV 73.4 fl (81-99); MONOCYTES 7.3 % (0-12); NEUTROPHILS 69.5 % (39-80); PLATELET COUNT 268 K/uL (140-440); RBC 3.88 M/ul (4.3-5.7); RDW 27.5 (10.5-15.0)
[2023-08-09] MEDS ORDERED: PANTOPRAZOLE SODIUM 40 MG/10 ML VIAL IV SCH (21:00)
[2023-08-09 21:03] VITALS: BP 120/58
[2023-08-10] MEDS ORDERED: SODIUM CHLORIDE 0.45% 1,000 ML IV SCH
[2023-08-10 01:30] VITALS: BP 115/51
[2023-08-10 05:36] VITALS: BP 136/54
[2023-08-10 05:39] LABS: BASOPHILS 1.2 % (0-2); EOSINOPHILS 1.6 % (0-6); HEMATOCRIT 26.8 % (35.0-50.0); HEMOGLOBIN 8.8 g/dL (12.0-18.0); LYMPHOCYTES 28.1 % (24-44); MCH 23.6 (27-36); MCHC 32.9 g/dl (30-36); MCV 71.8 fl (81-99); MONOCYTES 8.3 % (0-12); NEUTROPHILS 60.8 % (39-80); PLATELET COUNT 256 K/uL (140-440); RBC 3.73 M/ul (4.3-5.7); RDW 27.7 (10.5-15.0)
[2023-08-10 05:55] LABS: ALBUMIN 2.9 g/dL (3.4-5.0); ALBUMIN/GLOBULIN RATIO 0.85 (1.1-2.4); BILIRUBIN, TOTAL 0.7 ng/dL (0.2-1.0); BUN/CREATININE RATIO 11.95 (6.0-28.6); CREATININE, SERUM 0.92 mg/dL (0.55-1.02); MAGNESIUM 2.3 mg/dL (1.8-2.4); PHOSPHORUS, INORGANIC 3.8 mg/dL (2.5-4.9); PROTEIN, TOTAL 6.3 g/dL (6.4-8.2)
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
[2023-08-10] MEDS ORDERED: propofoL 200 MG/20 ML VIAL ONE ×2 (06:32→07:56)
[2023-08-10 08:47] LABS: RBC, LEUKOREDUCED 18212406275000L; RBC, LEUKOREDUCED 18212406521400L; RBC, LEUKOREDUCED 18212407564800B
[2023-08-10 08:49] VITALS: BP 125/751
[2023-08-10 09:05] VITALS: BP 128/43
[2023-08-10] MEDS ORDERED: CEFAZOLIN SODIUM 2 GM/20 ML SYR ONE (10:22)
[2023-08-10] MEDS ORDERED: CEFAZOLIN SODIUM 2 GM/20 ML SYR IV ONE (10:30)
[2023-08-10 11:12] VITALS: BP 122/53
[2023-08-10] MEDS ORDERED: PHARMACY RENAL DOSE ADJUSTMENT 1 DOSE MISC PO SCH (12:00)
[2023-08-10 12:32] VITALS: BP 124/51
[2023-08-10] MEDS ORDERED: PANTOPRAZOLE SODIUM 40 MG TABEC PO SCH (21:00)
--- NOTE | 2023-08-11 06:17 | OR ---
[facility] [address], [place] [address] Signed DATE OF OPERATION: 08/10/2023 SURGEON: Nigel Smyth MD PREOPERATIVE DIAGNOSES: 1. Recurring iron-deficiency anemia. 2. Laparoscopic Crystal-Za fundoplication (2018). 3. Recurring gastroduodenitis. 4. History of short-segment Hartman esophagus. POSTOPERATIVE DIAGNOSES: 1. Xozdxxx-ob-xzawmslj duodenitis. 2. Minimal gastritis. 3. Intact Crystal-Za fundoplication. 4. GE junction at 32 cm. 5. No obvious Hartman mucosa. PROCEDURE: Esophagogastroduodenoscopy with biopsies of the pyloric bulb, antrum, and GE junction. ESTIMATED BLOOD LOSS: None. INDICATIONS FOR THE PROCEDURE: Ann is a 73-year-old female, whom we have all come to know in the last several years. She has had trouble with recurring iron-deficiency anemia associated with her gastroduodenitis. Because she has no epigastric pain, she has declined any medication for the stomach, and yet she has been to our hospital now several times in the same situation, where she becomes anemic, weak, and dizzy and has to be transfused. Despite being seen by multiple providers, she continues to decline any medications for the stomach. She has therefore been through multiple upper and lower endoscopies over the last 2-3 years, at least three different providers have provided her endoscopies. She also had her aortic valve replaced and was on aspirin and Plavix for just over four months now. According to the hospitalist, who reviewed this last evening, she can come off the aspirin and Plavix with respect to the aortic valve replacement. We then also tried to track down her other records and I did review quite a bit in that regard. She has also been to our medical oncologist who had help with the IV iron infusions, apparently the iron tablets gave her GI upset. She has also had a previous hysterectomy, and therefore has no vaginal bleeding. She tells me she never sees any blood in her stool and she never vomits up any blood directly with her fundoplication. Electronically Signed By: NIGEL SMYTH MD 08/11/23 0617 PATIENT NAME: ANN AZEVEDO OPERATIVE REPORT DATE OF : 50 REPORT #: [id number] PHYSICIAN: NIGEL SMYTH MD PCP: PHILLIP CHONG DO REPORT IS CONFIDENTIAL AND NOT TO BE RELEASED WITHOUT AUTHORIZATION [facility] [address], [place] [address] Signed She just went through upper endoscopy in January 2023 with the same exact findings. She was brought back to the emergency room when she was dizzy and weak and was having trouble in the toilet. Again, her hemoglobin had dropped clear to 4.7. She was admitted to the hospitalist service. She has received 3 units of packed red blood cells and her hemoglobin is 8.8. She looks and feels much better and was asked to eat and go home yesterday evening when I came to see her. We reviewed all this in great detail. I tried to stress upon her the need for medication for stomach despite no pain in the epigastric area. I reviewed with her upper endoscopy, which she is very familiar with at this time. She understands there is risk including, but not limited to gas bloating, crampy abdominal pain, bleeding, perforation requiring surgery, and missed diagnosis. We also reviewed the need for monitored anesthesia care given her rather advanced age and frail nature and long history of smoking and her complex medical issues particularly her aortic valve replacement and she is quite certain she had an NC last year. She had expressed understanding and wished to proceed. DESCRIPTION OF PROCEDURE: Ann was taken into our endoscopy suite and placed in a supine semi-recumbent position. She was given monitored anesthesia care per nurse administrative fellow. A bite block was utilized for the case. The adult gastroscope was introduced and advanced under direct visualization of camera out into the duodenum. The duodenum proper was unremarkable. Her pyloric bulb as always shows inflammatory changes. We went and took a biopsy from the pyloric bulb. Back in the stomach, she had very minimal inflammatory changes on this occasion. There were no ulcerations. We went ahead and took a biopsy out of the antrum for a pathologic review. We did not repeat her CLOtest. Upon retroflexion of scope, we could easily see the intact Crystal-Za fundoplication. The scope was withdrawn up through the GE junction, which was compliant without stricture. There was no gastric or esophageal varices. She has very minimal disruption to the Z-line. No classic velvety Hartman-appearing mucosa. The GE junction is at 32 cm. We went ahead and took a single biopsy along the edge of the Z-line. Her distal middle and upper esophagus were unremarkable. After this, the gas was suctioned out, the gastroscope removed. Ann tolerated the procedure quite well. RECOMMENDATIONS: Ann is going to be returning to her room on the hospital service. We will put her on a full liquid diet at this time. She needs to consider medication for her stomach. She is welcome to follow up my office in a week or two to review the biopsy report. We know that she had a barium enema as well and it was negative. She might consider simple small-bowel follow-through. If that is all negative, she should consider capsule endoscopy. Electronically Signed By: NIGEL SMYTH MD 08/11/23 0617 PATIENT NAME: ANN AZEVEDO OPERATIVE REPORT DATE OF : 50 REPORT #: [id number] PHYSICIAN: NIGEL SMYTH MD PCP: PHILLIP CHONG DO REPORT IS CONFIDENTIAL AND NOT TO BE RELEASED WITHOUT AUTHORIZATION [address] [address] Signed Nigel Smyth MD ALB/MODL /[id number] cc: David Blackburn MD Patient Chart MD Sadiq Sanchez, MD Nigel Smyth MD Copies: DAVID FRANCIS JEFFREY M MD QUACKENBUSH, ROBERT C MD TOWNSLEY, MALCOLM MD BOWER, ANDREW L MD ~ Electronically Signed By: NIGEL SMYTH MD 08/11/23 0617 PATIENT NAME: ANN AZEVEDO OPERATIVE REPORT DATE OF : 50 REPORT #: [id number] PHYSICIAN: NIGEL SMYTH MD PCP: PHILLIP CHONG DO REPORT IS CONFIDENTIAL AND NOT TO BE RELEASED WITHOUT AUTHORIZATION
--- NOTE | 2023-08-14 13:25 | PATH ---
[facility] [address], [place] [address] Signed SPECIMEN(S): A DUODENAL BIOPSY SPECIMEN(S): B ANTRUM BIOPSY SPECIMEN(S): C GE JUNCTION BIOPSY SPECIMEN SOURCE: A. DUODENAL BIOPSY B. ANTRUM BIOPSY C. GE JUNCTION BIOPSY CLINICAL HISTORY: Iron deficiency anemia. Gastroduodenitis. FINAL PATHOLOGIC DIAGNOSIS: A. Duodenum, biopsy: - Duodenal mucosa with no significant pathologic changes B. Stomach, antrum, biopsy: - Gastric antral mucosa with no significant pathologic changes - Negative for Helicobacter pylori with HE stains C. Gastroesophageal junction, biopsy: - Squamoglandular mucosa with intestinal metaplasia; negative for dysplasia BRP MICROSCOPIC EXAMINATION: Histologic sections of all submitted blocks are examined by light microscopy. These findings, together with the gross examination, support the pathologic diagnosis. GROSS DESCRIPTION: A. The specimen, labeled and designated "Portenier, duodenum," is received in formalin and consists of two fragments of soft stark tissue that are up to 0.4 cm in greatest dimension. Entirely submitted in (A1). B. The specimen, labeled and designated "Portenier, antrum," is received in formalin and consists of one fragment of soft stark tissue that is up to 0.5 cm in greatest dimension. Entirely submitted in (B1). C. The specimen, labeled and designated "Portenier, GE junction," is received in formalin and consists of one fragment of soft stark tissue that is up to 0.5 cm in greatest dimension. Entirely submitted in (C1). TAHIR (under the direct supervision of a pathologist) PATIENT NAME: SINGH AZEVEDO PATHOLOGY DATE OF : 50 REPORT #: [id number] PHYSICIAN: DHAVAL ORELLANA PCP: PHILLIP CHONG DO REPORT IS CONFIDENTIAL AND NOT TO BE RELEASED WITHOUT AUTHORIZATION [facility] [address], [place] [address] Signed The Gross Description was prepared using a voice recognition system. The report was reviewed for accuracy; however, sound-alike word errors, addition and/or deletions may occur. If there is any question about this report, please contact Client Services. ADDITIONAL NOTES: Immunohistochemical and/or in situ hybridization studies if performed in this case included appropriate positive controls that reacted as expected. This test was developed and its performance characteristics determined by [facility]. It has not been cleared or approved by the U.S. Food and Drug Administration. The FDA has determined that such clearance or approval is not necessary. This test is used for clinical purposes. It should not be regarded as investigational or for research. [facility] is certified under the Clinical Laboratory Improvement Amendments of 1988 (CLIA) as qualified to perform high complexity clinical laboratory testing. PERFORMING LABORATORY: Technical component was performed by [facility], [address] [place] [address] (CLIA# [id number]). Professional interpretation was performed by [facility] - [facility], [address] [place] [address] (CLIA#: [id number]). Diagnostician: Gibran Bhat MD Pathologist Electronically Signed 08/14/2023 Copies: ~ PATIENT NAME: SINGH AZEVEDO PATHOLOGY DATE OF : 50 REPORT #: [id number] PHYSICIAN: DHAVAL PATHOLOGY PCP: PHILLIP CHONG DO REPORT IS CONFIDENTIAL AND NOT TO BE RELEASED WITHOUT AUTHORIZATION
== END 2023-08-10 13:35 | disposition home or self-care (01) ==
LOC: ED 08:56 → MS 08:58 → ED 13:17 → MS 08-10 13:35
PROVIDERS: Emergency Medicine; Internal Medicine; ADMIT Family Medicine; ATTEND Family Medicine
PROC: 0DB98ZX Excision of Duodenum, Via Natural or Artificial Opening Endoscopic, Diagnostic (ICD-10-PCS; principal; 2023-08-09)
PROC: 0DB68ZX Excision of Stomach, Via Natural or Artificial Opening Endoscopic, Diagnostic (ICD-10-PCS; 2023-08-09)
PROC: 0DB48ZX Excision of Esophagogastric Junction, Via Natural or Artificial Opening Endoscopic, Diagnostic (ICD-10-PCS; 2023-08-09)
DX: K22.70 Barrett's esophagus without dysplasia (principal); K29.80 Duodenitis without bleeding; K29.70 Gastritis, unspecified, without bleeding; D50.9 Iron deficiency anemia, unspecified; I25.2 Old myocardial infarction; F17.210 Nicotine dependence, cigarettes, uncomplicated; Z88.5 Allergy status to narcotic agent; Z79.82 Long term (current) use of aspirin; Z79.899 Other long term (current) drug therapy
CPT/HCPCS: 00731; 36415; 36430; 74174; 80053; 81001; 83735; 84100; 84484; 85025; 85060; 85610; 86850; 86900; 86901; 86922; 88305; 93005; 93010; 96375; 97116; 97162; 99291; C9113; J0690; J2405; J2704; J7030; P9016; Q9967

== ENCOUNTER 2024-04-09 14:54 | Emergency (ER) | payer MEDICARE, OTHER ==
[~2024-04-09] VITALS: Ht 149.9 cm; Wt 64.1 kg
[~2024-04-09 14:54] MED LIST changes: +CLOPIDOGREL75 MG PO; +ISOSORBIDE MONO60 MG PO; +NITROGLYCERIN0.4 MG SL
[2024-04-09] MEDS ORDERED: TIZANIDINE HCL2 MG PO (15:12)
[2024-04-09] MEDS ORDERED: MYRBETRIQ50 MG PO (15:12)
[2024-04-09] MEDS ORDERED: OMEPRAZOLE20 MG PO (15:12)
[2024-04-09] MEDS ORDERED: ASPIRIN81 MG (15:14)
[2024-04-09 15:37] LABS: BASOPHILS 0.9 % (0-2); EOSINOPHILS 1.3 % (0-6); HEMATOCRIT 22.8 % (35.0-50.0); HEMOGLOBIN 7.3 g/dL (12.0-18.0); LYMPHOCYTES 27.1 % (24-44); MCHC 32.1 g/dl (30-36); MCV 74.7 fl (81-99); MONOCYTES 7.2 % (0-12); NEUTROPHILS 63.5 % (39-80); PLATELET COUNT 309 K/uL (140-440); RBC 3.05 M/ul (4.3-5.7); RDW 16.4 (10.5-15.0)
[2024-04-09 15:47] LABS: INR 0.96 (0.80-1.30)
[2024-04-09 15:53] LABS: ALBUMIN 3.4 g/dL (3.4-5.0); ALBUMIN/GLOBULIN RATIO 0.94 (1.1-2.4); ANION GAP 14.4 (7-21); BILIRUBIN, TOTAL 0.2 ng/dL (0.2-1.0); BUN/CREATININE RATIO 12.5 (6.0-28.6); CALCIUM 8.9 mg/dL (8.5-10.1); CREATININE, SERUM 1.04 mg/dL (0.55-1.02); POTASSIUM 3.4 mmol/L (3.5-5.1)
[2024-04-09 16:14] LABS: ABO A; ANTIBODY SCREEN NEGATIVE; IS CROSSMATCH COMPATIBLE; RH POSITIVE
[2024-04-09 21:27] VITALS: BP 111/56
== END 2024-04-09 21:27 | disposition home or self-care (01) ==
LOC: ED 14:54
PROVIDERS: Emergency Medicine
DX: D64.9 Anemia, unspecified (principal); I25.2 Old myocardial infarction; F17.200 Nicotine dependence, unspecified, uncomplicated; Z88.5 Allergy status to narcotic agent; Z79.82 Long term (current) use of aspirin; Z79.899 Other long term (current) drug therapy
CPT/HCPCS: 36415; 36430; 80053; 85025; 85610; 86850; 86900; 86901; 86922; 99284-25; P9016

== ENCOUNTER 2024-05-23 10:45 | Emergency (ER) | payer MEDICARE, OTHER ==
[~2024-05-23] VITALS: Ht 149.9 cm; Wt 61.7 kg
[~2024-05-23 10:45] MED LIST changes: +ASPIRIN81 MG; +MYRBETRIQ50 MG PO; +OMEPRAZOLE20 MG PO; +TIZANIDINE HCL2 MG PO
[2024-05-23] MEDS ORDERED: ACYCLOVIR800 MG PO (10:56)
[2024-05-23 12:16] VITALS: BP 142/70
== END 2024-05-23 12:17 | disposition home or self-care (01) ==
LOC: ED 10:45
DX: S39.92XA Unspecified injury of lower back, initial encounter (principal); M54.50 Low back pain, unspecified; G89.29 Other chronic pain; I25.2 Old myocardial infarction; F17.200 Nicotine dependence, unspecified, uncomplicated; Z88.5 Allergy status to narcotic agent; Z79.82 Long term (current) use of aspirin; Z79.899 Other long term (current) drug therapy; X50.1XXA Overexertion from prolonged static or awkward postures, initial encounter
CPT/HCPCS: 72100; 99283

== ENCOUNTER 2024-07-20 14:08 | Emergency (ER) | payer MEDICARE, OTHER ==
[~2024-07-20] VITALS: Ht 149.9 cm; Wt 61.5 kg
[~2024-07-20 14:08] MED LIST changes: +ACYCLOVIR800 MG PO
[2024-07-20 14:36] LABS: BASOPHILS 0.8 % (0-2); EOSINOPHILS 0.9 % (0-6); HEMATOCRIT 31.6 % (35.0-50.0); HEMOGLOBIN 10.4 g/dL (12.0-18.0); LYMPHOCYTES 28.4 % (24-44); MCH 26.1 (27-36); MCV 79.1 fl (81-99); MONOCYTES 6.8 % (0-12); NEUTROPHILS 63.1 % (39-80); PLATELET COUNT 307 K/uL (140-440); RBC 3.99 M/ul (4.3-5.7); RDW 15.5 (10.5-15.0)
[2024-07-20 14:48] LABS: ALBUMIN 3.6 g/dL (3.4-5.0); ALBUMIN/GLOBULIN RATIO 0.82 (1.1-2.4); ANION GAP 13.2 (7-21); BILIRUBIN, TOTAL 0.3 mg/dL (0.2-1.0); BUN/CREATININE RATIO 14.86 (6.0-28.6); CREATININE, SERUM 1.48 mg/dL (0.55-1.02); MAGNESIUM 2.4 mg/dL (1.8-2.4); POTASSIUM 4.2 mmol/L (3.5-5.1)
[2024-07-20] MEDS ORDERED: SODIUM CHLORIDE 0.9% 1,000 ML IV PRN (15:45)
[2024-07-20 17:21] VITALS: BP 165/78
--- NOTE | 2024-07-21 21:29 | EKG ---
[facility] [address] [facility] [place] [address] Signed Normal sinus rhythm Normal ECG When compared with ECG of 09-AUG-2023 08:57, QT has shortened Confirmed by Pihl Arellano DO ([id number]) on 07/21/2024 9:29:30 PM Electronically Signed By: PHIL ARELLANO DO 07/21/24 2129 PATIENT NAME: ANNABELLE AZEVEDOAgustin WELCH Electrocardiogram DATE OF : 50 PHYSICIAN: PHIL ARELLANO DO REPORT #: [id number] REPORT IS CONFIDENTIAL AND NOT TO BE RELEASED WITHOUT AUTHORIZATION
== END 2024-07-20 17:25 | disposition home or self-care (01) ==
LOC: ED 14:08
PROVIDERS: Emergency Medicine
DX: R55 Syncope and collapse (principal); F17.200 Nicotine dependence, unspecified, uncomplicated; Z88.5 Allergy status to narcotic agent; I10 Essential (primary) hypertension; I25.2 Old myocardial infarction
CPT/HCPCS: 36415; 72131; 80053; 83735; 84484; 85025; 93005; 93010; 99284-25

== ENCOUNTER 2025-02-10 16:16 | Observation (INO) | payer MEDICARE, OTHER ==
[~2025-02-10] VITALS: Ht 149.9 cm; Wt 57.4 kg
[~2025-02-10 16:16] MED LIST changes: -ASPIRIN81 MG; +CLOTRIMAZOLE AF TOP; +FLUCONAZOLE150 MG PO; +NYSTATIN15 GM
[2025-02-10] MEDS ORDERED: IBLOOD GLUCOSE TEST STRIP 1 EA TEST XX ONE (16:30)
[2025-02-10 17:02] LABS: BASOPHILS 0.5 % (0.1-1.2); EOSINOPHILS 0.7 % (0.7-5.8); LYMPHOCYTES 17.5 % (19.3-51.7); MCH 22.4 PG (25.6-32.2); MCHC 30.0 g/dL (32.2-35.5); MCV 74.6 fL (79.4-94.8); MONOCYTES 6.1 % (4.7-12.5); NEUTROPHILS 74.9 % (34.0-71.1); RBC 3.31 M/uL (3.93-5.22)
[2025-02-10 17:14] LABS: ALT (SGPT) 14.0 U/L (14-59); AST (SGOT) 14.0 U/L (15-37); GLOMERULAR FILTRATION RATE,EST 47.0 mL/min (>60); PROTEIN, TOTAL 7.5 g/dL (6.4-8.2); UREA NITROGEN 20.0 mg/dL (7-18)
[2025-02-10 19:09] LABS: INR 0.98 (0.80-1.30); PROTIME 12.6 Sec (11.2-14.2)
[2025-02-10 20:09] LABS: ABO A; RH POSITIVE
[2025-02-10 20:10] LABS: ANTIBODY SCREEN NEGATIVE; IS CROSSMATCH COMPATIBLE
[2025-02-10] MEDS ORDERED: PANTOPRAZOLE SODIUM 40 MG/10 ML VIAL IV SCH (21:00)
[2025-02-10 22:34] VITALS: BP 148/72
--- NOTE | 2025-02-10 22:36 | NUR ---
DR GU AT RN STATION. PER DR GU, WAIT TO RECHECK LABS UNTIL ALREADY ORDERED AM LABS. FIRST UNIT BLOOD CONTINUES TO INFUSE, pt RECENTLY TO MS FLOOR.
--- NOTE | 2025-02-10 23:00 | NUR ---
SCHEDULED MEDS ADMINISTERED. REPORT RECEIVED FROM EVA BANGURA. pt ARRIVED TO THE FLOOR VIA STRETCHER. FIRST UNIT OF BLOOD INFUSING PER ORDER. pt ABLE TO SCOOT HERSELF OVER TO THE BED FROM THE STRETCHER. VITAL SIGNS DONE. ASSESSMENT DONE. ADMISSION DONE. IV ASSESSED, WNL. pt NPO AT THIS TIME. CALL LIGHT WITHIN REACH. pt DENIES ANY OTHER NEEDS AT THIS TIME. UNIT 1 OF 2 FINISHED INFUSING. 506 mL TOTAL INFUSED.
--- NOTE | 2025-02-10 23:49 | NUR ---
PATIENT UP TO BEDSIDE COMMODE SBA TO VOID 250ML YELLOW URINE. PATIENT IS BACK IN BED. NO FURTHER NEEDS AT THIS TIME. WARM BLANKET PROVIDED. BED ALARM ON FOR SAFETY.
[2025-02-11] VITALS (15 sets, daily range): BP systolic 110–148; BP diastolic 56–76
--- NOTE | 2025-02-11 01:24 | NUR ---
UNIT 2 OF 2 BLOOD PRODUCT INFUSED. POST INFUSION VSS, SECOND RN IN ROOM AND SALINE LOCKED pt. pt DENEIS ADDITIONAL NEEDS OR CONCERNS, CALL LIGHT IN REACH. BED ALARM ON FOR SAFETY.
--- NOTE | 2025-02-11 03:37 | NUR ---
CALL LIGHT ANSWERED, pt UP TO VOID VIA BSC-VOIDED 200MLS. pt BACK IN BED, BED ALARM ON AND CALL LIGHT IN REACH. pt STOOD PIVOT.
--- NOTE | 2025-02-11 03:52 | NUR ---
pt RESTING IN THE BED WITH EYES CLOSED. CALL LIGHT WITHIN REACH. RR EVEN AND UNLABORED.
[2025-02-11 05:30] LABS: BASOPHILS 0.6 % (0.1-1.2); EOSINOPHILS 0.9 % (0.7-5.8); LYMPHOCYTES 19.7 % (19.3-51.7); MCH 24.3 PG (25.6-32.2); MCHC 31.9 g/dL (32.2-35.5); MCV 76.4 fL (79.4-94.8); MONOCYTES 7.8 % (4.7-12.5); NEUTROPHILS 70.8 % (34.0-71.1); RBC 4.15 M/uL (3.93-5.22)
[2025-02-11 05:30] LABS: ALT (SGPT) 10.0 U/L (14-59); AST (SGOT) 14.0 U/L (15-37); GLOMERULAR FILTRATION RATE,EST 58.0 mL/min (>60); PHOSPHORUS, INORGANIC 4.5 mg/dL (2.5-4.9); PROTEIN, TOTAL 6.7 g/dL (6.4-8.2); UREA NITROGEN 20.0 mg/dL (7-18)
--- NOTE | 2025-02-11 06:16 | NUR ---
IN RM TO DO ASSESSMENT AND VITAL SIGNS. NEW IV STARTED IN RIGHT FOREARM. pt UP TO THE BR. SBA. pt DENIES ANY NEEDS AT THIS TIME. CALL LIGHT WITHIN REACH.
--- NOTE | 2025-02-11 07:25 | NUR ---
ALERT AND ORIENTED, ROOM AIR, CLEAR LUNGS, ABD SOFT, TENDER, WARREN, LBM YESTERDAY. INDEPENDENT IN ROOM, 2SL PATENT. NO C/O PAIN. NPO, DOES OWN ORAL CARE
--- NOTE | 2025-02-11 08:24 | EKG ---
[facility] [address] [facility] [place] [address] Signed Normal sinus rhythm Normal ECG When compared with ECG of 20-JUL-2024 14:28, No significant change was found Confirmed by Manuel Gu MD () on 02/11/2025 8:23:58 AM Electronically Signed By: MANUEL GU MD 02/11/25 0824 PATIENT NAME: ANNABELLE AZEVEDOAgustin WELCH Electrocardiogram DATE OF : 50 PHYSICIAN: MANUEL GU MD REPORT #: [id number] REPORT IS CONFIDENTIAL AND NOT TO BE RELEASED WITHOUT AUTHORIZATION
[2025-02-11] MEDS ORDERED: NICOTINE 21 MG/24 HR 1 EA TDSY TD SCH (09:00)
--- NOTE | 2025-02-11 09:24 | NUR ---
awake, cooperative, surgeon in room earlier. NPO does own oral care. completed pre procedure questions.
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
--- NOTE | 2025-02-11 10:13 | NUR ---
PT RESTING, EYES CLOSED, AWAKENS EASILY, NO C/O PAIN OR N/V AT THIS TIME. NPO, TOLERATING WELL, DOES OWN ORAL CARE, WAITING TO GO DOWN FOR EGD
--- NOTE | 2025-02-11 11:02 | NUR ---
PATIENT IN BED, MD GAXIOLA AT BEDSIDE. CALL LIGHT AND PERSONAL BELONGINGS IN REACH OF PATIENT. PATIENT DENIES CONCERNS AT THIS TIME.
--- NOTE | 2025-02-11 11:24 | NUR ---
UR CLINICAL REVIEW: 2 MN FOR VERSALUS-PER CLINICAL OPERATIONS SPECIALIST MEETS OBS FOR GI BLEED WITH NEED FOR TRANSFUSION AND COLONOSCOPY MEDICARE OBS 02/10/25 @ 2052 ORDER MATCHES REG DISCHARGE TO HOME WHEN STABLE POSSIBLE DC TO HOME TODAY FOLLOWING PROCEDURE
--- NOTE | 2025-02-11 11:37 | NUR ---
PATIENT IN BED, CALL LIGHT IN REACH. PATIENT DENIES CONCERNS.
[2025-02-11] MEDS ORDERED: PHARMACY RENAL DOSE ADJUSTMENT 1 DOSE MISC PO SCH (12:00)
[2025-02-11] MEDS ORDERED: TRIAMCINOLONE A15 G1 TOP (12:09)
--- NOTE | 2025-02-11 12:09 | NUR ---
MED REC COMPLETE
--- NOTE | 2025-02-11 13:48 | NUR ---
PATIENT IN BED, CALL LIGHT IN REACH. DENIES CONCERNS.
--- NOTE | 2025-02-11 14:48 | NUR ---
PATIENT IN BED, EYES CLOSED, CHEST RISE EVEN AND UNLABORED. CALL LIGHT AND PERSONAL BELONGINGS IN REACH OF PATIENT.
[2025-02-11] MEDS ORDERED: LIDOCAINE HCL 2% 5 ML SDV ONE (15:49)
--- NOTE | 2025-02-11 16:00 | NUR ---
PATIENT OFF FLOOR WITH SURGERY RN VIA BED.
--- NOTE | 2025-02-11 16:40 | NUR ---
PATIENT BACK TO FLOOR VIA STRETCHER AND HAND EMBROIDERER. THIS RN PROVIDED STANDBY ASSIST TO ASSIST PATIENT TO RESTROOM AND TO BED. PATIENT TOLERATED WELL. PATIENT DENIES CONCERNS AT THIS TIME. CALL LIGHT AND PERSONAL BELONGINGS IN REACH.
--- NOTE | 2025-02-11 17:01 | NUR ---
02/11/25 1701 Ashanti Matt 1611 PT ARRIVED TO PACU ON 4L VIA NC IN HER MOUTH, RESP EVEN AND UNLABORED. PT ASLEEP. 1624 PT WOKE AND DENIES CONCERNS, HOB INCREASED AND PLAN OF CARE DISCUSSED. 1635 PT RETURNED TO ROOM 119 AND PT UP TO BATHROOM WITH MED-REVENUE STAMP CUTTER. REPORT GIVEN AND ALL QUESTIONS ANSWERED.
--- NOTE | 2025-02-11 17:39 | NUR ---
PATIENT IN BED. VITAL SIGNS COMPLETED. PATIENT PROVIDED WITH CLEAR LIQUID PER ORDER. PATIENT REPORTS, "i ONLY DRINK COFFEE". PATIENT EDUCATION PROVIDED, PATIENT AGREEABLE TO DRINK WATER WELL. PATIENT REFUSES ALL FURTHER CLEAR LIQUIDS AT THIS TIME. CALL LIGHT AND PERSONAL BELONGINGS IN REACH OF PATIENT.
--- NOTE | 2025-02-11 18:04 | NUR ---
PATIENT IN BED, TELE BATTERY REPLACED. CALL LIGHT AND PERSONAL BELONGINGS IN REACH OF PATIENT.
[2025-02-11 18:05] LABS: BASOPHILS 0.6 % (0.1-1.2); EOSINOPHILS 1.2 % (0.7-5.8); LYMPHOCYTES 27.8 % (19.3-51.7); MCH 23.8 PG (25.6-32.2); MCHC 30.9 g/dL (32.2-35.5); MCV 77.1 fL (79.4-94.8); MONOCYTES 7.9 % (4.7-12.5); NEUTROPHILS 62.1 % (34.0-71.1); RBC 4.49 M/uL (3.93-5.22)
--- NOTE | 2025-02-11 18:36 | NUR ---
PATIENT IN BED, VITAL SIGNS COMPLETE. CALL LIGHT AND PERSONAL BELONGINGSI N REACH.
--- NOTE | 2025-02-11 18:57 | NUR ---
ASSISTED PATIENT TO RESTROOM AND BACK TO BED. CALL LIGHT AND PERSONAL BELONGINGS IN REACH OF PATIENT. PATIENT PROVIDED WITH MENU FOR REGUALR DIET.
--- NOTE | 2025-02-11 19:15 | NUR ---
REPORT RECEIVED FROM DANIEL BANGURA. pt RESTING IN THE BED EATING FOOD. BOARD UPDATED. pt DENIES ANY NEEDS AT THIS TIME. CALL LIGHT WITHIN REACH.
--- NOTE | 2025-02-11 20:50 | NUR ---
ASSESSMENT AND VITAL SIGNS DONE. BOWEL TONES ACTIVE. pt UP TO THE BR. IV'S ASSESSED, WNL. pt DENIES ANY NEEDS AT THIS TIME. CALL LIGHT WITHIN REACH. SCHEDULED MEDS ADMINISTERED.
--- NOTE | 2025-02-11 22:40 | NUR ---
pt RESTING IN THE BED WITH EYES CLOSED. RR EVEN AND UNLABORED. CALL LIGHT WITHIN REACH.
--- NOTE | 2025-02-12 00:20 | NUR ---
pt RESTING IN THE BED WITH EYES CLOSED. RR EVEN AND UNLABORED. CALL LIGHT WITHIN REACH.
[2025-02-12 01:52] VITALS: BP 102/54
--- NOTE | 2025-02-12 02:16 | NUR ---
ROLLING ATTENDANT IN TO DO 2AM VITAL SIGNS. pt AWAKE. pt UP TO THE BR. pt REQUEST COFFEE. WARM BLANKET PROVIDED. pt DENIES ANY NEEDS AT THIS TIME. CALL LIGHT WITHIN REACH.
--- NOTE | 2025-02-12 04:38 | NUR ---
pt RESTING IN THE BED WITH EYES CLOSED. RR EVEN AND UNLABORED. CALL LIGHT WITHIN REACH.
[2025-02-12 05:18] VITALS: BP 126/54
[2025-02-12 05:24] LABS: BASOPHILS 0.6 % (0.1-1.2); EOSINOPHILS 1.0 % (0.7-5.8); LYMPHOCYTES 26.9 % (19.3-51.7); MCH 24.1 PG (25.6-32.2); MCHC 31.5 g/dL (32.2-35.5); MCV 76.8 fL (79.4-94.8); MONOCYTES 8.8 % (4.7-12.5); NEUTROPHILS 62.5 % (34.0-71.1); RBC 4.39 M/uL (3.93-5.22)
[2025-02-12 05:38] LABS: GLOMERULAR FILTRATION RATE,EST 66.0 mL/min (>60); UREA NITROGEN 18.0 mg/dL (7-18)
--- NOTE | 2025-02-12 06:19 | NUR ---
ASSESSMENT AND VITAL SIGNS DONE. pt RESTING IN THE BED. COFFEE PROVIDED. pt DENIES ANY OTHER NEEDS AT THIS TIME. CALL LIGHT WITHIN REACH.
--- NOTE | 2025-02-12 07:06 | NUR ---
RECIEVED REPORT FROM WILLEM LAORSE. PT IS LAYING IN BED WITH EYES CLOSED. RR EVEN AND UNLABORED. CALL LIGHT IS WITHIN REACH.
--- NOTE | 2025-02-12 07:48 | NUR ---
PATIENT IN CHAIR AT THIS TIME. MICA PLATE LAYER HAND CHARTED HOURLY ROUNDS. MICA PLATE LAYER HAND ASSISTED PATIENT TO CHAIR. CALL LIGHT WITHIN REACH, NO FURTHER NEEDS.
[2025-02-12] MEDS ORDERED: PANTOPRAZOLE SODIUM 40 MG TABEC PO SCH (09:00)
[2025-02-12 09:14] VITALS: BP 126/54
[2025-02-12 09:16] VITALS: BP 126/54
--- NOTE | 2025-02-12 09:17 | NUR ---
PT IN RECLINER WATCHING TV. DENIES ANY NEEDS. CALL LIGHT AND PERSONAL BELONGINGS ARE WITHIN REACH.
[2025-02-12] MEDS ORDERED: OMEPRAZOLE40 MG PO (09:18)
--- NOTE | 2025-02-12 09:44 | NUR ---
UPDATED THAT PCP APPOINTMENT HAS BEEN SCHEDULED. NO OTHER CM NEEDS AT THIS TIME. DC TO HOME TODAY
--- NOTE | 2025-02-12 10:51 | NUR ---
OT STATES PATIENT VOICES CONCERN ABOUT COST OF THERAPY. CALLED AND SPOKE WITH NATHALY AT [facility] FOR [facility]. SHE STATES WITH PATIENT HAVING MEDICARE AND , SHE WILL HAVE NO COPAY.
--- NOTE | 2025-02-12 10:51 | NUR ---
H&P, FACESHEET, PROGRESS NOTES, DC SUMMARY FAXED TO [facility] FOR FOLLOW-UP APPOINTMENT.
--- NOTE | 2025-02-12 11:04 | OR ---
[facility] [address] [place], [place] [address] Signed DATE OF OPERATION: 02/11/2025 SURGEON: Willy Wang DO PREOPERATIVE DIAGNOSIS: Unexplained gastrointestinal bleeding. POSTOPERATIVE DIAGNOSES: 1. Unexplained gastrointestinal bleeding with esophagitis LA grade B to C. 2. Punctate gastritis. 3. Gastric arteriovenous malformation. PROCEDURE PERFORMED: Esophagogastroduodenoscopy with biopsy of the stomach and random biopsy and then biopsy of GE junction as well. ANESTHESIA: IV sedation. ESTIMATED BLOOD LOSS: None. DRAINS: None. COMPLICATIONS: None. DESCRIPTION OF PROCEDURE: The patient was brought to the GI lab, placed in the supine position. After induction of IV sedation through preanesthetized oropharynx and a bite block, the Olympus video endoscope was then introduced into the mouth directed to the length of esophagus into the distal esophagus. Upon encountering the distal esophagus, some LA grade C esophagitis was noted with some bridging of the mucosa as well. Biopsies were taken and then passed off the field for pathologic review. The scope was then placed in the stomach. Exploration was then carried out. Two small AVMs were noted in the mid portion of the gastric body. Photographs were taken. The scope was advanced into the antrum. Random gastric biopsy was taken, passed off the field for pathologic review. The scope was advanced through the pylorus, 1st and 2nd portion of the duodenum. No ulcerations or lesions were noted. Scope was brought back into the stomach. No further Electronically Signed By: WILLY WANG DO 02/12/25 1104 PATIENT NAME: SINGH AZEVEDO OPERATIVE REPORT DATE OF : 50 REPORT #: [id number] PHYSICIAN: WILLY WANG DO PCP: NO PRIMARY CARE PHYSICIAN REPORT IS CONFIDENTIAL AND NOT TO BE RELEASED WITHOUT AUTHORIZATION [address] [address] Signed ulcerations or lesions were appreciated. The stomach was decompressed. Scope was withdrawn in its entirety. The patient tolerated the procedure well and taken to recovery room in satisfactory condition. DO SARA Martinez/JAZ /[id number] Copies: ~ Electronically Signed By: WILLY WANG DO 02/12/25 1104 PATIENT NAME: SINGH AZEVEDO OPERATIVE REPORT DATE OF : 50 REPORT #: [id number] PHYSICIAN: WILLY WANG DO PCP: NO PRIMARY CARE PHYSICIAN REPORT IS CONFIDENTIAL AND NOT TO BE RELEASED WITHOUT AUTHORIZATION
--- NOTE | 2025-02-14 14:23 | PATH ---
[facility] [place] [facility] [address], [place] [address] Signed SPECIMEN(S): A STOMACH BIOPSY SPECIMEN(S): B GE JUNCTION SPECIMEN SOURCE: A. STOMACH BIOPSY B. GE JUNCTION CLINICAL HISTORY: GI bleed, anemia, gastric AUM, gastritis, esophagitis FINAL PATHOLOGIC DIAGNOSIS: A. Stomach, biopsy: - Minimal nonspecific chronic gastritis with mild reactive change. - Negative for Helicobacter pylori. - Negative for intestinal metaplasia, dysplasia, or malignancy. B. Gastroesophageal junction, biopsy: - Fragment of oxyntic gastric mucosa showing minimal nonspecific chronic gastritis. - Negative for Helicobacter pylori. - Negative for intestinal metaplasia, dysplasia, or malignancy. - Squamous mucosa is not identified. DWS:smn MICROSCOPIC EXAMINATION: Histologic sections of all submitted blocks are examined by light microscopy. These findings, together with the gross examination, support the pathologic diagnosis. GROSS DESCRIPTION: A. The specimen, labeled and designated "Portenier, stomach biopsy," is received in formalin and consists of one stark soft tissue fragment, 0.2 cm. Entirely submitted in (A1). B. The specimen, labeled and designated "Portenier, GE junction biopsy," is received in formalin and consists of one stark soft tissue fragment, 0.3 cm. Entirely submitted in (B1). VB (under the direct supervision of a pathologist) The Gross Description was prepared using a voice recognition system. The report was reviewed for accuracy; however, sound-alike word errors, addition and/or deletions may occur. If there is any question about this report, please contact Client Services. PATIENT NAME: SINGH AZEVEDO PATHOLOGY DATE OF : 50 REPORT #: [id number] PHYSICIAN: DHAVAL ORELLANA PCP: NO PRIMARY CARE PHYSICIAN REPORT IS CONFIDENTIAL AND NOT TO BE RELEASED WITHOUT AUTHORIZATION [address] [place], [place] [address] Signed PERFORMING LABORATORY: Technical component was performed by [facility], [address] [place] [id number] (CLIA# [id number]). Professional interpretation was performed by [facility], [address] [place] [id number] (CLIA#: [id number]). Diagnostician: Albin Mckeon MD Pathologist Electronically Signed 02/14/2025 Copies: ~ PATIENT NAME: SINGH AZEVEDO PATHOLOGY DATE OF : 50 REPORT #: [id number] PHYSICIAN: DHAVAL ORELLANA PCP: NO PRIMARY CARE PHYSICIAN REPORT IS CONFIDENTIAL AND NOT TO BE RELEASED WITHOUT AUTHORIZATION
== END 2025-02-12 10:05 | disposition home or self-care (01) ==
LOC: ED 16:16 → MS 16:18
PROVIDERS: Emergency Medicine; Surgery; ADMIT Family Medicine; ATTEND Family Medicine
PROC: 0DB68ZX Excision of Stomach, Via Natural or Artificial Opening Endoscopic, Diagnostic (ICD-10-PCS; 2025-02-11)
PROC: 0DB58ZX Excision of Esophagus, Via Natural or Artificial Opening Endoscopic, Diagnostic (ICD-10-PCS; principal; 2025-02-11 13:10)
DX: K29.51 Unspecified chronic gastritis with bleeding (principal); R53.1 Weakness; R42 Dizziness and giddiness; K55.20 Angiodysplasia of colon without hemorrhage; K20.91 Esophagitis, unspecified with bleeding; D64.9 Anemia, unspecified; I10 Essential (primary) hypertension; I25.10 Atherosclerotic heart disease of native coronary artery without angina pectoris; I25.2 Old myocardial infarction; F17.210 Nicotine dependence, cigarettes, uncomplicated; Z79.82 Long term (current) use of aspirin; Z79.899 Other long term (current) drug therapy; Z88.5 Allergy status to narcotic agent
CPT/HCPCS: 00813; 36415; 36430; 80048; 80053; 83735; 84100; 84484; 85025; 85610; 86850; 86900; 86901; 86922; 88305; 93005; 93010; 96374; 96376; 99285-25; A9270; G0378; J2003; J2470; J2704; P9016

== ENCOUNTER 2025-02-21 17:25 | Emergency (ER) | payer MEDICARE, OTHER ==
[~2025-02-21] VITALS: Ht 149.9 cm; Wt 57.0 kg
--- OUTSIDE RECORDS SUMMARY | ~2025-02-21 | XMS | Continuity of Care Document ---
Demographics + + + | Address | [address] | | | [place] [address] | + + + | Preferred Language | Unknown | + + + | Marital Status | Never | + + + | Amish Affiliation | Unknown | + + + | Race | White | + + + | Ethnic Group | Not or | + + + Author + + + | Author | [facility] | + + + | Organization | [facility] | + + + | Address | [address] | | | [place] [address] | + + + | Phone | | + + + Care Team Providers + + + + | Care Care Connector Name | Role | Phone | + + + + Unavailable | Unavailable | + + + + Unavailable | Unavailable | + + + + Allergies and Intolerances + + + + + + | date | description | facility | reaction | severity | + + + + + + | 2025-02-10 | Codeine | [facility] Vom[facility] | Mild | | 00:00 | | [facility] | | | + + + + + + | 2025-02-10 | Codeine | [facility] | Vomiting | Mild | | 00:00 | | [facility] | | | + + + + + + | 2025-02-10 | Codeine | [facility] | Vomiting | Mild | | 00:00 | | [facility] | | | + + + + + + Encounters No information. Functional Status No information. Immunizations No information. Medications + + + + | date | description | facility | + + + + | (no date) | TRIAMCINOLONE 0.1% | [facility] | | | | [facility] | + + + + | (no date) | NAPROXEN | [facility] | | | | [facility] | + + + + | (no date) | MIRABEGRON | [facility] | | | | [facility] | + + + + | (no date) | HYDROCODONE | [facility] | | | BIT/ACETAMINOPHEN | [facility] | + + + + | (no date) | ACYCLOVIR | [facility] | | | | [facility] | + + + + | (no date) | NITROGLYCERIN | [facility] | | | | [facility] | + + + + | (no date) | OMEPRAZOLE | [facility] | | | | [facility] | + + + + | 2025-02-12 00:00 | OMEPRAZOLE | [facility] | | | | [facility] | + + + + | (no date) | ASPIRIN | [facility] | | | | [facility] | + + + + | (no date) | Aspirin | [facility] | | | | [facility] | + + + + | (no date) | CLOPIDOGREL BISULFATE | [facility] | | | | [facility] | + + + + | (no date) | ISOSORBIDE MONONITRATE | [facility] | | | | [facility] | + + + + | (no date) | HYDROCODONE | [facility] | | | BIT/ACETAMINOPHEN | [facility] | + + + + Problems No information. Procedures No information. Results/Labs +--------+--------+ +---------+--------+---------+ | test | date | facility | value | unit | notes | +--------+--------+ +---------+--------+---------+ + + | Result panel 1 | + + + + + +-------+ + + | Glucose | 2025-02-10 | | 123 | (missing) | (missing) | | Taryn[facility]Mak | 16:41:07 | [facility] | | | | + + + +-------+ + + + + | Result panel 2 | + + + + + +--------+ + + | Prothrombin | 2025-02-10 | | 12.6 | (missing) | (missing) | | time | 16:42:07 | [facility] | | | | | [facility] | | | | + + + +--------+ + + + + | Result panel 3 | + + + + + +--------+ + + | INR PPP | 2025-02-10 | | 0.98 | (missing) | (missing) | | | 16:42:07 | [facility] | [facility] | | | | + + + +--------+ + + + + | Result panel 4 | + + + + + +-------+ + + | Troponin I | 2025-02-10 | | 5.7 | (missing) | (missing) | | SerPl | 16:42:07 | [facility] | | | | | HS-mCnc | [facility] | | | | + + + +-------+ + + + + | Result panel 5 | + + + + + + + + + | Num units | 2025-02-10 | | | (missing) | (missing) | | trans packed | 19:27:07 | [facility] | [id number] | | | | RBC | | - [facility] | 100S | | | | | | [facility] | | | | + + + + + + + + + | Result panel 6 | + + + + + + + + + | Num units | 2025-02-10 | | | (missing) | (missing) | | trans packed | 19:27:07 | [facility] | [id number] | | | | RBC | | - [facility] | 400P | | | | | | [facility] | | | | + + + + + + + + + | Result panel 7 | + + + + + + + + + | Transf Band | 2025-02-10 | | BLOOD IN | (missing) | (missing) | | Num Patient | 19:27:07 | [facility] | LAB | | | | | [facility] | | | | + + + + + + + + + | Result panel 8 | + + + + + +-----+ + + | ABO Group | 2025-02-10 | | A | (missing) | (missing) | | Bld | 19:27:07 | [facility] | | | | | | [facility] | | | | + + + +-----+ + + + + | Result panel 9 | + + + + + + + + + | Rh Bld | 2025-02-10 | | POSITIVE | (missing) | (missing) | | | 19:27:07 | [facility] | | | | | | [facility] | | | | + + + + + + + + + | Result panel 10 | + + + + + + + + + | IAT Poly-Sp | 2025-02-10 | | NEGATIVE | (missing) | (missing) | | Reag SerPl | 19:27:07 | [facility] | | | | | Ql | [facility] | | | | + + + + + + + + + | Result panel 11 | + + + + + + + + + | Wiliam XM | 2025-02-10 | | COMPATIBLE | (missing) | (missing) | | SerPl Imm | 19:27:07 | [facility] | | | | | Spin-Imp | [facility] | | | | + + + + + + + + + | Result panel 12 | + + + + + + + + + | Wiliam XM | 2025-02-10 | | COMPATIBLE | (missing) | (missing) | | SerPl Imm | 19:27:07 | [facility] | | | | | Spin-Imp | [facility] | | | | + + + + + + + + + | Result panel 13 | + + + + + +-------+---------+ + | Phosphate | 2025-02-11 | | 4.5 | mg/dL | (missing) | | SerPl-mCsrinivas | 05:08:07 | [facility] | | | | | | [facility] | | | | + + + +-------+---------+ + + + | Result panel 14 | + + + + + +-------+---------+ + | Magnesium | 2025-02-11 | | 2.2 | mg/dL | (missing) | | SerPl-mCsrinivas | 05:08:07 | [facility] | | | | | | [facility] | | | | + + + +-------+---------+ + + + | Result panel 15 | + + + + + +-------+ + + | Prot | 2025-02-11 | | 6.7 | (missing) | (missing) | | Lyndon | 05:08:07 | [facility] | | | | | | [facility] | | | | + + + +-------+ + + + + | Result panel 16 | + + + + + +-------+ + + | Albumin | 2025-02-11 | | 3.2 | (missing) | (missing) | | SerPmarciano-Mak | 05:08:07 | [facility] | | | | | | [facility] | | | | + + + +-------+ + + + + | Result panel 17 | + + + + + +-------+ + + | Globulin | 2025-02-11 | | 3.5 | (missing) | (missing) | | Ser-Mak | 05:08:07 | [facility] | | | | | | [facility] | | | | + + + +-------+ + + + + | Result panel 18 | + + + + + +--------+ + + | | 2025-02-11 | | 0.91 | (missing) | (missing) | | Albumin/Glob | 05:08:07 | [facility] | | | | | SerPl | [facility] | | | | + + + +--------+ + + + + | Result panel 19 | + + + + + +-------+---------+ + | Bilirub | 2025-02-11 | | 0.7 | mg/dL | (missing) | | SerPl-mCnc | 05:08:07 | [facility] | | | | | | [facility] | | | | + + + +-------+---------+ + + + | Result panel 20 | + + + + + +------+ + + | AST | 2025-02-11 | | 14 | (missing) | (missing) | | SerPl-cCn | 05:08:07 | [facility] | | | | | | [facility] | | | | + + + +------+ + + + + | Result panel 21 | + + + + + +------+ + + | ALT | 2025-02-11 | | 10 | (missing) | (missing) | | SerPl-cCnc | 05:08:07 | [facility] | | | | | | [facility] | | | | + + + +------+ + + + + | Result panel 22 | + + + + + +------+ + + | ALP | 2025-02-11 | | 67 | (missing) | (missing) | | SerPl-cCn | 05:08:07 | [facility] | | | | | | [facility] | | | | + + + +------+ + + + + | Result panel 23 | + + + + + + + + + | | 2025-02-11 | | (missing) | (missing) | (missing) | | Electrocardi | 08:24 | [facility] | | | | | ogram | [facility] | | | | + + + + + + + + + | Result panel 24 | + + + + + +--------+ + + | WBC # Bld | 2025-02-12 | | 4.98 | (missing) | (missing) | | Auto | 05:18:07 | [facility] | | | | | | [facility] | | | | + + + +--------+ + + + + | Result panel 25 | + + + + + +--------+ + + | RBC # Bld | 2025-02-12 | | 4.39 | (missing) | (missing) | | Auto | 05:18:07 | [facility] | | | | | | [facility] | | | | + + + +--------+ + + + + | Result panel 26 | + + + + + +--------+ + + | Hgb | 2025-02-12 | | 10.6 | (missing) | (missing) | | Taryn-Mak | 05:18:07 | [facility] | | | | | | [facility] | | | | + + + +--------+ + + + + | Result panel 27 | + + + + + +--------+ + + | Hct VFr.DF | 2025-02-12 | | 33.7 | (missing) | (missing) | | Bld Auto | 05:18:07 | [facility] | | | | | [facility] | | | | + + + +--------+ + + + + | Result panel 28 | + + + + + +--------+ + + | RBC Auto | 2025-02-12 | | 76.8 | (missing) | (missing) | | | 05:18:07 | [facility] | | [facility] | | | | + + + +--------+ + + + + | Result panel 29 | + + + + + +--------+ + + | MCH RBC Qn | 2025-02-12 | | 24.1 | (missing) | (missing) | | Auto | 05:18:07 | [facility] | | | | | | [facility] | | | | + + + +--------+ + + + + | Result panel 30 | + + + + + +--------+ + + | MCHC RBC | 2025-02-12 | | 31.5 | (missing) | (missing) | | Auto-EntMCnc | 05:18:07 | [facility] | | | | | | [facility] | | | | + + + +--------+ + + + + | Result panel 31 | + + + + + +-------+ + + | Platelet # | 2025-02-12 | | 271 | (missing) | (missing) | | Bld Auto | 05:18:07 | [facility] | | | [facility] | | | | + + + +-------+ + + + + | Result panel 32 | + + + + + +--------+ + + | Neutrophils | 2025-02-12 | | 62.5 | (missing) | (missing) | | NFr Bld | 05:18:07 | [facility] | | | | | Auto | | [facility] | | | | + + + +--------+ + + + + | Result panel 33 | + + + + + +--------+ + + | Lymphocytes | 2025-02-12 | | 26.9 | (missing) | (missing) | | NFr Bld | 05:18:07 | [facility] | | | | | Auto | | [facility] | | | | + + + +--------+ + + + + | Result panel 34 | + + + + + +-------+ + + | Monocytes | 2025-02-12 | | 8.8 | (missing) | (missing) | | NFr Bld Auto | 05:18:07 | [facility] | | | | | | [facility] | | | | + + + +-------+ + + + + | Result panel 35 | + + + + + +-------+ + + | Eosinophil | 2025-02-12 | | 1.0 | (missing) | (missing) | | NFr Bld Auto | 05:18:07 | [facility] | [facility] | | | | + + + +-------+ + + + + | Result panel 36 | + + + + + +-------+ + + | Basophils | 2025-02-12 | | 0.6 | (missing) | (missing) | | NFr Bld Auto | 05:18:07 | [facility] | | | | | | [facility] | | | | + + + +-------+ + + + + | Result panel 37 | + + + + + +------+---------+ + | Glucose | 2025-02-12 | | 95 | mg/dL | (missing) | | SerPl-mCnc | 05:18:07 | [facility] | | | | | | [facility] | | | | + + + +------+---------+ + + + | Result panel 38 | + + + + + +------+---------+ + | BUN | 2025-02-12 | | 18 | mg/dL | (missing) | | [facility] | 05:18:07 | [facility] | | | | | | | - | | | | | | | [facility] | | | | + + + +------+---------+ + + + | Result panel 39 | + + + + + +--------+---------+ + | Creat | 2025-02-12 | | 0.91 | mg/dL | (missing) | | [facility] | 05:18:07 | [facility] | | | | | | [facility] | | | | + + + +--------+---------+ + + + | Result panel 40 | + + + + + +------+ + + | eGFRcr | 2025-02-12 | | 66 | (missing) | (missing) | | SerPlBld | 05:18:07 | [facility] | | | | | CKD-EPI 2020 | [facility] | | | | + + + +------+ + + + + | Result panel 41 | + + + + + +---------+ + + | BUN/Creat | 2025-02-12 | | 19.78 | (missing) | (missing) | | SerPl | 05:18:07 | [facility] | | | | | | [facility] | | | | + + + +---------+ + + + + | Result panel 42 | + + + + + +-------+ + + | Sodium | 2025-02-12 | | 138 | (missing) | (missing) | | SerPl-sCnc | 05:18:07 | [facility] | | | | | | [facility] | | | | + + + +-------+ + + + + | Result panel 43 | + + + + + +-------+ + + | Potassium | 2025-02-12 | | 3.9 | (missing) | (missing) | | SerPl-sCnc | 05:18:07 | [facility] | | | | | | [facility] | | | | + + + +-------+ + + + + | Result panel 44 | + + + + + +-------+ + + | Chloride | 2025-02-12 | | 102 | (missing) | (missing) | | [facility] | 05:18:07 | [facility] | | | | | | [facility] | | | | + + + +-------+ + + + + | Result panel 45 | + + + + + +------+ + + | CO2 | 2025-02-12 | | 28 | (missing) | (missing) | | SerPl-sCnc | 05:18:07 | [facility] | | | | | | [facility] | | | | + + + +------+ + + + + | Result panel 46 | + + + + + +--------+ + + | Anion Gap | 2025-02-12 | | 11.9 | (missing) | (missing) | | SerPl | 05:18:07 | [facility] | | | | | Calculated.4 | | [facility] | | [facility] | | | | + + + +--------+ + + + + | Result panel 47 | + + + + + +-------+---------+ + | Calcium | 2025-02-12 | | 8.5 | mg/dL | (missing) | | [facility] | 05:18:07 | [facility] | | | | | | [facility] | | | | + + + +-------+---------+ + Social History +--------+ + + | date | description | facility | +--------+ + + Vital Signs + + + +---------+ | date | measurement | value | units | + + + +---------+ | 2025-02-10 00:00 | BMI | 25.6 | kg/m2 | + + + +---------+ | 2025-02-10 00:00 | height_metric | 149.86 | cm | + + + +---------+ | 2025-02-10 00:00 | height_standard | 59 | in | + + + +---------+ | 2025-02-10 00:00 | weight_metric | 57.399 | kg | + + + +---------+ | 2025-02-10 00:00 | weight_standard | 126.543 | lb | + + + +---------+ | 2025-02-12 00:00 | BP_diastolic | 54 | mmHg | + + + +---------+ | 2025-02-12 00:00 | BP_systolic | 126 | mmHg | + + + +---------+ | 2025-02-12 00:00 | heart_rate | 71 | /min | + + + +---------+ | 2025-02-12 00:00 | o2_saturation | 98 | % | + + + +---------+ | 2025-02-12 00:00 | respiration_rate | 18 | /min | + + + +---------+ | 2025-02-12 00:00 | | 97.6 | F | | | temperature_standar | | | | | d | | | + + + +---------+"
[~2025-02-21 17:25] MED LIST changes: +OMEPRAZOLE40 MG PO; +TRIAMCINOLONE A15 G1 TOP
[2025-02-21 18:45] LABS: BASOPHILS 0.9 % (0.1-1.2); EOSINOPHILS 0.7 % (0.7-5.8); LYMPHOCYTES 15.1 % (19.3-51.7); MCH 23.8 PG (25.6-32.2); MCHC 29.8 g/dL (32.2-35.5); MCV 79.8 fL (79.4-94.8); MONOCYTES 11.6 % (4.7-12.5); NEUTROPHILS 71.5 % (34.0-71.1); RBC 4.25 M/uL (3.93-5.22)
[2025-02-21 19:04] LABS: ALT (SGPT) 8.0 U/L (14-59); AST (SGOT) 16.0 U/L (15-37); GLOMERULAR FILTRATION RATE,EST 50.0 mL/min (>60); PROTEIN, TOTAL 7.4 g/dL (6.4-8.2); UREA NITROGEN 23.0 mg/dL (7-18)
[2025-02-21 19:13] LABS: CORONAVIRUS COVID-19 AG POSITIVE (NEGATIVE)
[2025-02-21] MEDS ORDERED: AMOX TR-K CLV1 EAC1 PO (20:03)
[2025-02-21] MEDS ORDERED: AZITHROMYCIN250 MG PO (20:03)
[2025-02-21 20:17] VITALS: BP 131/66
== END 2025-02-21 20:14 | disposition home or self-care (01) ==
LOC: ED 17:25
PROVIDERS: Emergency Medicine
DX: U07.1 COVID-19 (principal); J18.9 Pneumonia, unspecified organism; D64.9 Anemia, unspecified; I25.2 Old myocardial infarction; F17.200 Nicotine dependence, unspecified, uncomplicated; Z88.5 Allergy status to narcotic agent; Z79.82 Long term (current) use of aspirin; Z79.899 Other long term (current) drug therapy
CPT/HCPCS: 36415; 71045; 80053; 85025; 99284-25